=== PATIENT | female | born 1985 | race Caucasian/White ===

== ENCOUNTER 2019-06-04 09:09 | Emergency (ER) | payer SELFPAY ==
--- NOTE | 2019-06-04 09:11 | W.ED.NAVMDI ---
HPI - Nausea/Vomiting/Diarrhea General: Chief complaint: Fever Stated complaint: N/V Time Seen by Provider: 06/04/19 09:11 Source: patient Mode of arrival: ambulatory Limitations: no limitations History of Present Illness: HPI Narrative: Patient is a 33-year-old female who presents to ED today with complaints of a subjective fever starting last night, chills, body aches, productive cough, head/sinus pressure, and a few episodes of vomiting; again symptoms began yesterday; she has no abdominal pain, diarrhea, or urinary symptoms; denies sick contacts; no headache, lightheadedness, dizziness, visual changes MD elicited complaint: nausea and vomiting Associated nausea: Yes Associated abdominal pain: No Location of pain: None Associated symtoms: Reports fatigue, malaise and nausea; Denies change in vision, chest pain, dysuria, headache(s), palpitations or syncope Review of Systems Const: Reports: fever, chills, body aches, fatigue and malaise Eyes: Denies: change in vision or blurry vision ENMT: Denies: enlarged tonsils or painful swallowing Card: Denies: chest pain, palpitations, irregular heart rhythm, lightheadedness, syncope or shortness of breath on exertion Resp: Reports: productive cough and chest congestion; Denies: shortness of breath, wheezing, pain on inspiration or coughing up blood GI: Reports: nausea and vomiting; Denies: abdominal pain, vomiting blood, difficulty swallowing, heartburn/indigestion, diarrhea, painful bowel movements, change in stool character, blood in stool or white/light colored stool : Denies: flank pain, difficulty urinating, painful urination, urinary frequency, urinary urgency or urinary hesitancy Musc: Denies: neck pain, back pain or joint pain Skin/Breast: Denies: rash Neuro: Denies: headache, numbness in extremities, weakness in extremities, changes in sensation or lack of coordination PFSH ED PFSH: Statuses (acute, chronic, etc) shown below reflect problem list status as previously entered and may not be historically accurate Social History Smoking and tobacco status: current every day smoker Physical Exam Const: COMMON NORMALS: no apparent distress, oriented x3, no limitations, alert and well nourished HENMT: COMMON NORMALS: normocephalic, head/scalp atraumatic, EAC's normal and TM's normal bilaterally HEAD & SCALP: normal to inspection, normocephalic and atraumatic FACE & SINUS: sinus tenderness EXTERNAL AUDITORY CANAL: EAC's normal TYMPANIC MEMBRANE: TM's normal bilaterally MOUTH: oral and palatal mucosa normal THROAT: posterior oropharynx normal, tonsils normal and uvula midline Eye: COMMON NORMALS: PERRL and EOMs intact bilaterally PUPIL: Yes PERRL Neck/C-Spine: COMMON NORMALS: full ROM, no lymphadenopathy, supple and no meningeal signs Resp: COMMON NORMALS: normal respiratory effort and clear to auscultation bilaterally AUSCULTATION: clear to auscultation bilaterally Cardio: COMMON NORMALS: regular rate and regular rhythm RATE: regular rate RHYTHM: regular rhythm GI: COMMON NORMALS: normal to inspection, nondistended, normoactive bowel sounds, soft to palpation, non-tender, no hepatosplenomegaly and no masses PALPATION: Yes soft and Yes no hepatosplenomegaly : COMMON NORMALS: Yes no CVA tenderness BLADDER/KIDNEY EXAM: Yes no CVA tenderness Back/Pelvis: COMMON NORMALS: no CVA tenderness and thoracic and lumbar spine normal to inspection Extremity: COMMON NORMALS: normal to inspection Neuro: COMMON NORMALS: oriented x3 SENSORIUM/ORIENTATION: Yes alert MENINGEAL SIGNS: Yes no meningeal signs Skin: COMMON NORMALS: no rashes or lesions noted GENERAL SKIN EXAM: no rashes or lesions noted Course Vital Signs: Vital signs: Vital Signs Temperature 98.3 F 06/04/19 12:30 Pulse Rate 87 06/04/19 12:30 Respiratory Rate 18 06/04/19 12:30 Blood Pressure 95/55 06/04/19 12:30 Pulse Oximetry 98 06/04/19 12:30 MDM - Nausea/Vomiting/Diarrhea Lab Data: Labs: Lab Results 06/04/19 06/04/19 06/04/19 Range/Units 09:38 10:42 10:42 WBC 9.0 (4.0-10.0) 10^3/ uL RBC 4.99 (4.1-5.3) 10^6/u L Hgb 13.6 (11.5-15.3) g/dL Hct 40.5 (37.0-47.0) % MCV 81.2 (81-99) fL MCH 27.3 L (28.0-34.0) pg MCHC 33.6 (30.0-36.0) g/dL RDW 13.2 (12.1-15.1) % Plt Count 289 (130-400) 10^3/c mm MPV 9.6 (7.4-10.4) fL Neut % (Auto) 67.9 % Lymph % (Auto) 20.4 % Hooker % (Auto) 8.7 % Eos % (Auto) 2.1 % Baso % (Auto) 0.6 % Neut # (Auto) 6.1 (1.8-7.7) 10^3/u L Lymph # (Auto) 1.8 (0.8-4.8) 10^3/u L Hooker # (Auto) 0.8 (0.2-0.9) 10^3/u L Eos # (Auto) 0.2 (0.0-0.8) 10^3/u L Baso # (Auto) 0.1 (0.0-0.1) 10^3/u L Nucleated RBC % (a uto) 0 % Nucleated RBCs # 0.0 /100WBC Sodium 137 (136-145) mmol/L Potassium 3.9 (3.5-5.1) mmol/L Chloride 102 (98-107) mmol/L Carbon Dioxide 21 L (22-29) mmol/L Anion Gap 17.9 (5-19) BUN 9 (6-20) mg/dL Creatinine 0.9 (0.5-0.9) mg/dL GFR Calculation 72.6 L (90-130) mL/min Glucose 113 H (74-109) mg/dL Calcium 9.6 (8.5-10.5) mg/dL Total Bilirubin 0.4 (0.15-1.2) mg/dL AST 26 (0-32) U/L ALT 16 (0-33) U/L Alkaline Phosphata se 88 (35-105) IU/L Total Protein 7.8 (6.6-8.7) g/dL Albumin 4.3 (3.5-5.2) g/dL Globulin 3.5 (1.3-4.6) g/dL Influenza Type A A g Negative (Negative) POC Influenza B Ag Negative (Negative) 06/04/19 Range/Units 11:02 WBC (4.0-10.0) 10^3/ uL RBC (4.1-5.3) 10^6/u L Hgb (11.5-15.3) g/dL Hct (37.0-47.0) % MCV (81-99) fL MCH (28.0-34.0) pg MCHC (30.0-36.0) g/dL RDW (12.1-15.1) % Plt Count (130-400) 10^3/c mm MPV (7.4-10.4) fL Neut % (Auto) % Lymph % (Auto) % Hooker % (Auto) % Eos % (Auto) % Baso % (Auto) % Neut # (Auto) (1.8-7.7) 10^3/u L Lymph # (Auto) (0.8-4.8) 10^3/u L Hooker # (Auto) (0.2-0.9) 10^3/u L Eos # (Auto) (0.0-0.8) 10^3/u L Baso # (Auto) (0.0-0.1) 10^3/u L Nucleated RBC % (a uto) % Nucleated RBCs # /100WBC Sodium (136-145) mmol/L Potassium (3.5-5.1) mmol/L Chloride (98-107) mmol/L Carbon Dioxide (22-29) mmol/L Anion Gap (5-19) BUN (6-20) mg/dL Creatinine (0.5-0.9) mg/dL GFR Calculation (90-130) mL/min Glucose (74-109) mg/dL Calcium (8.5-10.5) mg/dL Total Bilirubin (0.15-1.2) mg/dL AST (0-32) U/L ALT (0-33) U/L Alkaline Phosphata se (35-105) IU/L Total Protein (6.6-8.7) g/dL Albumin (3.5-5.2) g/dL Globulin (1.3-4.6) g/dL Influenza Type A A g Negative (Negative) POC Influenza B Ag Negative (Negative) Imaging Data^: CXR: Radiologist's impression: [address] [address] XRay Report Signed Patient: Chela Finley Unit #: [id number] : 1985 Age/Sex: 33 / F ADM Date: 06/04/19 Loc: ER Room/Bed: Attending Dr: Ordering Provider/Ordering MD: Brandee Trinh Date of Service: 06/04/19 Procedure(s): XR chest 1V portable [id number] Accession Number(s): [id number] Report Number: [id number] WS: [id number] Portable AP upright chest, 06/04/2019 Clinical Data: cough/congestion Comparison: PA chest, 06/20/2013 Findings: No nodules, masses or effusions are seen. The heart is normal. The pulmonary vascularity is not increased. No pneumonia or pneumothorax is seen. XR/XR chest 1V portable [id number] Impression: Negative chest. Dictated By: Sepideh Campuzano MD Signed By: Sepideh Campuzano MD Signed Date/Time: 06/04/19 1142 DD/ 1141 Discharge Plan Discharge Patient Disposition: Home, Self-Care Clinical Impression: Viral infection Condition: Stable Prescriptions: New Zofran 4 mg tablet 4 mg PO Q6H PRN (Reason: nausea and vomiting) Qty: 14 RF: 0 Discharge Orders: Discharge Order (Routine); Ordered 06/04/19 Ordered By: Brandee Trinh Referrals: Kiara Parker MD [Primary Care Provider] - Discharge Diet: Usual diet Discharge Activity: Increase activity as tolerated Activity Restrictions/Additional Instructions: Return to the emergency department for worsening symptoms, uncontrollable fevers, repetitive nausea and vomiting despite nausea medications, or any other concerns she may have. Coding Level of Care Code ED Motion Picture Photographer for Gini Oreilly
[2019-06-04 09:12] VITALS: BP 155/102; PULSE 89; RESP 18; TEMP 36.5; O2SAT 97; BMI 34.3
--- NOTE | 2019-06-04 10:03 | XR_ITS ---
WS: [id number] Portable AP upright chest, 06/04/2019 Clinical Data: cough/congestion Comparison: PA chest, 06/20/2013 Findings: No nodules, masses or effusions are seen. The heart is normal. The pulmonary vascularity is not increased. No pneumonia or pneumothorax is seen. XR/XR chest 1V portable [id number] Impression: Negative chest.
[2019-06-04 10:23] LABS: Influenza A by IFA Negative (Negative); Influenza B by IFA Negative (Negative)
[2019-06-04 10:51] LABS: Basophils # 0.1 10^3/uL (0.0-0.1); Basophils % 0.6 %; Eosinophils # 0.2 10^3/uL (0.0-0.8); Eosinophils % 2.1 %; Hematocrit 40.5 % (37.0-47.0); Hemoglobin 13.6 g/dL (11.5-15.3); Lymphocytes # 1.8 10^3/uL (0.8-4.8); Lymphocytes % 20.4 %; Mean Corpuscular HGB Conc 33.6 g/dL (30.0-36.0); Mean Corpuscular Hemoglobin 27.3 pg (28.0-34.0); Mean Corpuscular Volume 81.2 fL (81-99); Mean Platelet Volume 9.6 fL (7.4-10.4); Monocytes # 0.8 10^3/uL (0.2-0.9); Monocytes % 8.7 %; Neutrophils # 6.1 10^3/uL (1.8-7.7); Neutrophils % 67.9 %; Nucleated Red Blood Cells % 0 %; Platelet Count 289 10^3/cmm (130-400); Red Blood Count 4.99 10^6/uL (4.1-5.3); Red Cell Distribution Width 13.2 % (12.1-15.1)
[2019-06-04 11:05] LABS: Alanine Aminotransferase 16 U/L (0-33); Albumin Level 4.3 g/dL (3.5-5.2); Alkaline Phosphatase 88 IU/L (35-105); Anion Gap 17.9 (5-19); Aspartate Amino Transferase 26 U/L (0-32); Blood Urea Nitrogen 9 mg/dL (6-20); Calcium 9.6 mg/dL (8.5-10.5); Carbon Dioxide 21 mmol/L (22-29); Chloride 102 mmol/L (98-107); Creatinine Clr Calc Pharmacy 97.9019; Globulin 3.5 g/dL (1.3-4.6); Glomerular Filtration Rate 72.6 mL/min (90-130); Glucose 113 mg/dL (74-109); Potassium 3.9 mmol/L (3.5-5.1); Sodium 137 mmol/L (136-145); Total Bilirubin 0.4 mg/dL (0.15-1.2); Total Protein 7.8 g/dL (6.6-8.7)
[2019-06-04 11:33] VITALS: BP 100/56; PULSE 76; RESP 16; O2SAT 98
[2019-06-04] MEDS: sodium chloride 0.9% 1,000 ML 999 ML IV (11:56)
[2019-06-04 12:01] LABS: Influenza A by IFA Negative (Negative); Influenza B by IFA Negative (Negative)
[2019-06-04 12:30] VITALS: BP 95/55; PULSE 87; RESP 18; TEMP 36.8; O2SAT 98
[2019-06-04 12:45] VITALS: BP 95/55; PULSE 86; RESP 18; TEMP 36.9; O2SAT 86
== END 2019-06-04 12:47 | disposition home or self-care (01) ==
PROVIDERS: Emergency Provider Physician Assistant; PCP Family Medicine
DX: B34.9 Viral infection, unspecified (principal); F17.210 Nicotine dependence, cigarettes, uncomplicated
CPT/HCPCS: 36415; 71045; 80053; 85025; 87804; 96360; 96374; 99282; 99284; J7030

== ENCOUNTER → 2020-02-02 15:47 | Outpatient (BNVA) | payer OTHER, SELFPAY | PROVIDERS: PCP Family Medicine; Visit Provider Nurse Practitioner Family | DX: Z20.828 Contact with and (suspected) exposure to other viral communicable diseases (principal) | CPT/HCPCS: 87635 ==

== ENCOUNTER 2020-06-21 15:39 | Emergency (ER) | payer SELFPAY ==
[2020-06-21 15:47] VITALS: BP 108/85; PULSE 92; RESP 16; TEMP 36.6; O2SAT 94; BMI 36.0
[2020-06-21] MEDS: clindamycin 150 mg Capsule 300 MG PO (16:03)
[2020-06-21] MEDS: lidocaine 2% viscous 15 mL UDC 10 ML TOPICAL (16:04)
--- NOTE | 2020-06-21 16:08 | W.ED.DENTAL ---
HPI - Dental/Oral General: Chief complaint: Dental/Oral Stated complaint: ABSCESS TOOTH Time Seen by Provider: 06/21/20 15:45 Source: patient Mode of arrival: ambulatory Limitations: no limitations History of Present Illness: HPI Narrative: Pleasant 35-year-old female patient presents to the emergency department with 1 day history of right upper dental pain. She reports has bad teeth, does not complete routine dentistry care. She denies difficulty swallowing or breathing. Location: Tooth # Teeth map: 1. Onset (ago): day(s) (1) Duration: constant Severity: moderate Relieving factors: NSAIDs Exacerbating factors: chewing and cold Context: history of dental caries and poor dental care Associated symptoms: Reports no associated symptoms; Denies fever(s) Treatment prior to arrival: oral analgesic Review of Systems General: Reports: 10 or more systems reviewed and unremarkable except in HPI and below Const: Denies: fever(s), chills or diaphoresis Eyes: Denies: blurry vision or eye redness ENMT: Reports: dental pain; Denies: throat pain, uvular edema, dry mouth, disequilibrium, nasal discharge, nasal congestion, nasal obstruction or post nasal drip Card: Denies: chest pain, palpitations or irregular heart rhythm Resp: Denies: dyspnea, productive cough, non-productive cough or wheezing GI: Denies: abdominal pain, nausea or vomiting : Denies: difficulty voiding or dysuria Musc: Denies: neck pain, back pain, joint pain, joint warmth or joint stiffness Skin/Breast: Denies: rash or pruritus Neuro: Denies: headache(s), weakness in extremities or behavioral changes Psych: Denies: anxiety, depression, sleeping more or hopelessness Nasir/Lymph: Denies: easy bruising PFSH ED PFSH: Social History Smoking and tobacco status: current every day smoker Female Reproductive History: Date of last menstrual period: 06/21/20 Physical Exam Const: COMMON NORMALS: no acute distress, patient oriented x3, healthy appearing and alert GENERAL APPEARANCE: cooperative, comfortable and well hydrated HENMT: COMMON NORMALS: normocephalic, atraumatic, EAC's normal, Normal external nose present, moist oral mucous membranes and oropharynx normal HEAD & SCALP: normal to inspection, normocephalic and atraumatic FACE & SINUS: normal facial exam and face symmetric NOSE: Normal external nose present and Normal nares present EXTERNAL AUDITORY CANAL: EAC's normal TYMPANIC MEMBRANE: TM abnormal TM laterality: left Details: dull, erythematous and loss of landmarks MOUTH: Normal oral and palatal mucosa present and tongue normal TEETH & GINGIVA: Yes poor dentition, Yes teeth discoloration and Yes other (numerous avulsions) TEETH & GINGIVA IMAGES: 1. dental pain with palpation, slight gingival erythema with edema THROAT: posterior oropharynx normal and uvula midline; no uvular edema Eye: COMMON NORMALS: Equal, round and reactive pupils present and EOMs intact bilaterally GENERAL EYE: appearance normal, both eyes and all related structures PUPIL: Yes Equal, round and reactive pupils present Neck/C-Spine: COMMON NORMALS: full ROM and no lymphadenopathy GENERAL: Yes normal visual inspection and Yes trachea midline CERVICAL SPINE: Yes cervical ROM normal Lymph: LYMPHATIC: no lymphadenopathy noted Chest: COMMONS NORMALS: normal inspection of the chest and normal palpation of entire chest wall CHEST: No localized rib tenderness with anteroposterior compression Resp: COMMON NORMALS: normal respiratory effort, No retractions, No use of accessory muscles and clear to auscultation bilaterally EFFORT & INSPECTION: Yes able to speak in complete sentences, No labored, No Actively coughing and No retractions AUSCULTATION: clear to auscultation bilaterally Cardio: COMMON NORMALS: regular rate, regular rhythm, S1 normal heart sound present, S2 normal heart sound present and Peripheral pulses 2+ throughout RATE: regular rate RHYTHM: regular rhythm HEART SOUNDS: S1 normal heart sound present and S2 normal heart sound present PERIPHERAL PULSES: Peripheral pulses 2+ throughout GI: COMMON NORMALS: Soft to palpation and non-tender INSPECTION: Yes normal to inspection, No abdominal wall ecchymosis and Yes central obesity PALPATION: Yes Soft to palpation : COMMON NORMALS: Yes no CVA tenderness BLADDER/KIDNEY EXAM: Yes no CVA tenderness Back/Pelvis: COMMON NORMALS: no CVA tenderness and thoracic and lumbar spine normal to inspection Extremity: COMMON NORMALS: normal to inspection and capillary refill normal Neuro: COMMON NORMALS: patient oriented x3, moves all extremities, no focal motor deficits and gait normal SENSORIUM/ORIENTATION: Yes alert Psych: COMMON NORMALS: mental status grossly normal, Normal thought process present and cooperative ACTIVITY/MOTOR BEHAVIOR: Yes appropriate eye contact THOUGHT PROCESS: Normal thought process present Skin: COMMON NORMALS: no rashes or lesions noted and turgor normal GENERAL SKIN EXAM: no rashes or lesions noted and turgor normal Course Vital Signs: Vital signs: Vital Signs Temperature 97.9 F 06/21/20 15:47 Pulse Rate 92 06/21/20 15:47 Respiratory Rate 16 06/21/20 15:47 Blood Pressure 108/85 06/21/20 15:47 Pulse Oximetry 94 06/21/20 15:47 Discharge Plan Discharge Patient Disposition: Home Clinical Impression: Dental caries, Dental abscess Condition: Stable Prescriptions: New clindamycin HCl 300 mg capsule 300 mg PO QID 7 Days Qty: 28 RF: 0 chlorhexidine gluconate 0.12 % mouthwash 15 ml buccal BID Qty: 118 RF: 0 Discharge Orders: Discharge ED (Routine); Ordered 06/21/20 Ordered By: Rosibel Hernandez Discharge Diet: GI Soft Discharge Activity: Resume usual activity Patient Instructions: Dental Abscess (ED), Dental Caries (ED), Toothache (ED), Opioid Safety Activity Restrictions/Additional Instructions: Take antibiotics until all gone, even if feeling better Follow-up with dentistry in 10 days, even if better, failure to do so can cause loss of teeth or worsening infection Rinse with warm salt water every several hours to help with pain Avoid chewing on the affected side Continue ibuprofen as needed for pain, may augment with Tylenol if needed Continue viscous lidocaine as provided in the ED, may apply on Q-tip and applied to the gumline and tooth to help with pain every 2 hours Return to the emergency department if you develop difficulty breathing, swelling underneath the chin or other concerning symptoms Coding Level of Care Code ED Associate Professor Of Management for Mary Anng Fwd Exam Comprehensive
[2020-06-21 16:22] VITALS: BP 108/85; PULSE 83; RESP 16; O2SAT 97
== END 2020-06-21 16:22 | disposition home or self-care (01) ==
PROVIDERS: Emergency Provider Nurse Practitioner Family
DX: K02.9 Dental caries, unspecified (principal); K04.7 Periapical abscess without sinus; F17.210 Nicotine dependence, cigarettes, uncomplicated
CPT/HCPCS: 99282

== ENCOUNTER 2021-01-01 11:53 | Emergency (ER) | payer SELFPAY ==
[2021-01-01 12:11] VITALS: BP 102/69; PULSE 77; RESP 18; TEMP 36.7; O2SAT 98; BMI 36.8
--- NOTE | 2021-01-01 12:24 | W.ED.DENTAL ---
HPI - Dental/Oral General: Chief complaint: Dental/Oral Stated complaint: Toothache/Nasal Pain Time Seen by Provider: 01/01/21 11:55 History of Present Illness: HPI Narrative: I will doPatient has swelling to upper gum times few days, is hurting, has history of infection here, not able to get into a dentist due to financial constraints Complaint: tooth pain Location: Tooth # Teeth map: 1. Onset (ago): day(s) Duration: constant Severity: moderate Relieving factors: nothing Context: history of dental caries Associated symptoms: Reports gum swelling; Denies fever(s) Treatment prior to arrival: oral analgesic Review of Systems Const: Denies: fever(s) or chills ENMT: Reports: dental pain Psych: Denies: anxiety or depression PFSH ED PFSH: Social History Smoking and tobacco status: current every day smoker Female Reproductive History: Date of last menstrual period: 06/21/20 Physical Exam Const: COMMON NORMALS: no acute distress GENERAL APPEARANCE: cooperative HENMT: TEETH & GINGIVA IMAGES: 1. Swelling redness to the gum area tooth is broke off multiple dental caries noted in mouth. Sinuses okay without pain no drainage. Psych: COMMON NORMALS: mental status grossly normal Course Vital Signs: Vital signs: Vital Signs Temperature 98.1 F 01/01/21 12:11 Pulse Rate 77 01/01/21 12:11 Respiratory Rate 18 01/01/21 12:11 Blood Pressure 102/69 01/01/21 12:11 Pulse Oximetry 98 01/01/21 12:11 Discharge Plan Discharge Patient Disposition: Home Clinical Impression: Toothache Condition: Stable Prescriptions: New clindamycin HCl 300 mg capsule 300 mg PO Q8H 7 Days Qty: 21 RF: 0 Celebrex 100 mg capsule 100 mg PO BID Qty: 20 RF: 0 No Action sulfamethoxazole-trimethoprim 800-160 mg tablet 1 tab PO Q12H 10 Days Qty: 20 RF: 0 Discharge Orders: Discharge ED (Routine); Ordered 01/01/21 Ordered By: Ruben Swain Discharge Diet: Usual diet Discharge Activity: Resume usual activity Patient Instructions: Dental Caries (ED) Activity Restrictions/Additional Instructions: Follow-up with medical provider as directed. Take medications as prescribed. Return to the ER or your medical provider if condition worsens. Please read and understand discharge instructions. If any questions ask please. Get in to a dentist as soon as you can. Coding Level of Care Code ED Transmissions Systems Operator for Gini Oreilly
== END 2021-01-01 12:37 | disposition home or self-care (01) ==
PROVIDERS: Emergency Provider Nurse Practitioner Family
DX: S02.5XXA Fracture of tooth (traumatic), initial encounter for closed fracture (principal); K02.9 Dental caries, unspecified; F17.200 Nicotine dependence, unspecified, uncomplicated; X58.XXXA Exposure to other specified factors, initial encounter
CPT/HCPCS: 99281

== ENCOUNTER 2021-03-11 09:31 | Emergency (ER) | payer SELFPAY ==
[2021-03-11 09:45] VITALS: BP 116/79; PULSE 92; RESP 18; TEMP 36.6; O2SAT 98; BMI 36.3
--- NOTE | 2021-03-11 10:23 | W.ED.SKABFB ---
HPI - Skin/Abscess/Foreign Bdy General: Chief complaint: Skin/Abscess/Foreign Body Stated complaint: ABSCESS R GROIN AREA Time Seen by Provider: 03/11/21 09:53 History of Present Illness: HPI narrative: Patient is a 35-year-old female comes to the ED with concern for abscess in right groin area. Patient says she noticed a bump there approximately 5 days ago and is continued to get bigger and more painful. Patient says she is prone to getting these types of abscesses especially in areas where she shaves. Patient endorses a history of MRSA. Associated symptoms: Deny chills, fever(s), nausea or vomiting Review of Systems Const: Denies: fever(s), chills or fatigue Eyes: Denies: change in vision or eye discomfort ENMT: Denies: throat pain, odynophagia, nasal discharge or nasal congestion Card: Denies: chest pain, palpitations, edema, swelling of feet/ankles, dyspnea on exertion or orthopnea Resp: Denies: dyspnea, productive cough or non-productive cough GI: Denies: abdominal pain, nausea, vomiting, diarrhea, constipation or hematochezia : Denies: flank pain, dysuria or hematuria Musc: Denies: neck pain, back pain or extremity swelling Skin/Breast: Reports: new lesions (superficial abscess to right groin region); Denies: rash Neuro: Denies: headache(s), numbness in extremities or weakness in extremities [facility] ED PFSH: Medical History Obesity (BMI 30-39.9) Social History Smoking and tobacco status: current every day smoker Female Reproductive History: Date of last menstrual period: 06/21/20 Physical Exam Const: COMMON NORMALS: no acute distress, patient oriented x3, healthy appearing and alert GENERAL APPEARANCE: cooperative and comfortable HENMT: COMMON NORMALS: normocephalic HEAD & SCALP: normocephalic MOUTH: Normal oral and palatal mucosa present THROAT: posterior oropharynx normal and uvula midline Neck/C-Spine: COMMON NORMALS: supple GENERAL: Yes normal visual inspection Resp: COMMON NORMALS: normal respiratory effort, No retractions, No use of accessory muscles and clear to auscultation bilaterally AUSCULTATION: clear to auscultation bilaterally Cardio: COMMON NORMALS: regular rate, regular rhythm, S1 normal heart sound present, S2 normal heart sound present, No gallops present (Cardio), No clicks present (Cardio), No murmurs present (Cardio) and Peripheral pulses 2+ throughout RATE: regular rate RHYTHM: regular rhythm HEART SOUNDS: S1 normal heart sound present and S2 normal heart sound present PERIPHERAL PULSES: Peripheral pulses 2+ throughout GI: COMMON NORMALS: Normal to inspection, nondistended, normoactive bowel sounds present, Soft to palpation, non-tender and no masses PALPATION: Yes Soft to palpation : COMMON NORMALS: Yes no CVA tenderness BLADDER/KIDNEY EXAM: Yes no CVA tenderness Back/Pelvis: COMMON NORMALS: no CVA tenderness Extremity: COMMON NORMALS: normal to inspection Neuro: COMMON NORMALS: patient oriented x3 and moves all extremities SENSORIUM/ORIENTATION: Yes alert Skin: NARRATIVE SKIN EXAM: right groin?not involving genital area. She has a superficial palpable abscess with some surrounding erythema warmth. It is fluctuant and indurated Procedures Abscess I/D Site: other (right groin region) Side (if applicable): right Sedation/analgesia: other (pt was given a 1 tab of norco 5/325mg before procedure) Local Anesthetic: lidocaine 1% and with epi Amount of anesthesia used (mL): 5 Technique: incised with #11 blade Amount of fluid expressed (mL): 6 (Malodorous purulent drainage) Irrigation: Yes Packing used?: none Course Vital Signs: Vital signs: Vital Signs Temperature 97.9 F 03/11/21 09:45 Pulse Rate 81 03/11/21 10:42 Respiratory Rate 16 03/11/21 10:42 Blood Pressure 125/67 03/11/21 10:42 Pulse Oximetry 99 03/11/21 10:42 MDM - Skin/Abscess/Foreign Bdy MDM Narrative: Medical decision making narrative: Patient is a 35-year-old female who comes to the ED with lesion to the right groin. Upon exam patient appears to have superficial abscess of the right groin region and it does not involve genitalia. Appears to be a superficial skin abscess. Patient says she gets these quite a bit and has had to get them incised and drained in the past. Patient was given a dose of Tylenol for pain while here in the ED. I then used lidocaine 1% with epi as local and used an 11 blade to incise abscess. Approximately 6 mL of malodorous purulent fluid drained from abscess. Abscess culture was obtained and is pending at lab. I Then irrigated it with normal saline. Patient was discharged home with a prescription for clindamycin and told to follow-up with PCP as directed. Patient says she does not have a PCP and would like to get established with one. I placed order with case management for patient to be established with a primary care physician. Return ED precautions given. Patient understood and agreed with plan. Discharge Plan Discharge Patient Disposition: Home Clinical Impression: Skin abscess Qualifiers: Site of cutaneous abscess: trunk Site of cutaneous abscess of trunk: groin Qualified Code(s): L02.214 - Cutaneous abscess of groin Condition: Stable Prescriptions: New clindamycin HCl 150 mg capsule 300 mg PO QID 7 Days Qty: 56 RF: 0 No Action Celebrex 100 mg capsule 100 mg PO BID Qty: 20 RF: 0 Discharge Orders: Discharge ED (Routine); Ordered 03/11/21 Ordered By: Juan Goznales Discharge Diet: Regular Discharge Activity: Resume usual activity Patient Instructions: Abscess (ED), Abscess Follow-up (ED), Abscess Incision and Drainage (DC) Activity Restrictions/Additional Instructions: Follow-up with medical provider as directed. Case management should be calling you next several days to set up an appointment for you to get established with a PCP. Take medications as prescribed. Return to the ER or your medical provider if condition worsens. Please read and understand discharge instructions. Thank you for choosing [facility] for your healthcare needs today. Please realize this is an emergency room and that we are providing you with a medical screening exam and this may not be complete and all inclusive of all the testing and or work up that you may need to determine your ailment or severity of your illness. It is very important that you follow up as instructed or that you return to the Emergency Department should you have concerns or if your condition changes or worsens in any way. Coding Level of Care Code ED Ceramic Sprayer for Gini Oreilly Exam Comprehensive
[2021-03-11 10:42] VITALS: BP 125/67; PULSE 81; RESP 16; O2SAT 99
--- NOTE | 2021-03-11 10:54 | PC.NURSE ---
Addendum entered by Nu Car RN 03/11/21 11:24: Pt reports a hx of these types of boils for many years, pt reports she is usually able to warm pack the area and the boil goes way but this time it has just gooten worse with the swelling and pain. Pt rates [pain 11/11. Pt A/O, vss, pt placed on monitor. Original Note: Pt arrived via POV from home, pt states she has a boil in her right groin area
[2021-03-11] MEDS: acetaminophen 500 mg Tablet 1000 MG PO (11:04)
--- NOTE | 2021-03-14 11:34 | DCPLANNER ---
caravan park and camping ground manager had message to speak with patient about getting established with a primary care physician. caravan park and camping ground manager spoke with patient, she stated that she would like for child welfare caseworker to schedule a follow up appointment for patient with Dr. Castaneda. caravan park and camping ground manager called [facility], spoke with Deja, gave clinic patients information. A follow up appointment was scheduled for Sunday, March 21, 2021 at 1:[address] Castaneda. caravan park and camping ground manager called patient and gave patient the appointment information.
--- NOTE | 2021-05-27 15:52 | DCPLANNER ---
Patient had a follow up appointment scheduled with [facility] - patient did not attend appointment.
== END 2021-03-11 12:44 | disposition home or self-care (01) ==
PROVIDERS: Emergency Provider Physician Assistant
DX: L02.214 Cutaneous abscess of groin (principal); F17.210 Nicotine dependence, cigarettes, uncomplicated
CPT/HCPCS: 10060; 87070; 87075; 87077; 87186; 87205; 99283; 99291

== ENCOUNTER 2022-05-30 08:14 | Emergency (ER) | payer SELFPAY ==
[2022-05-30 08:18] VITALS: BP 131/102; PULSE 96; RESP 20; TEMP 36.6; O2SAT 97
[2022-05-30 08:21] VITALS: BP 118/73; PULSE 84; O2SAT 99
--- NOTE | 2022-05-30 08:23 | W.ED.NAVMDI ---
HPI - Nausea/Vomiting/Diarrhea General: Chief complaint: Nausea/Vomiting/Diarrhea Stated complaint: n/v/d Time Seen by Provider: 05/30/22 08:15 Source: patient Mode of arrival: ambulatory Limitations: no limitations History of Present Illness: Patient is a 36-year-old female who presents to ED today with a complaint of nausea, vomiting, diarrhea that all began around 1 AM this morning. Patient states she has had countless episodes of vomiting and diarrhea. She states diarrhea is watery. She has not noticed any blood to her emesis or stools. She states she ate pork chops for dinner. The rest of her family also ate the same food and none of them are sick. Patient is reporting abdominal cramping and body aches. No fevers. No urinary symptoms. No previous episodes/history of cyclic vomiting. She does report using marijuana 2-3x a week. MD elicited complaint: nausea, vomiting and diarrhea Onset (ago): hour(s) Description of diarrhea: watery Associated nausea: Yes Associated abdominal pain: Yes (cramping) Location of pain: Diffuse Radiation: diffuse Pain consistency: constant Quality: cramping Exacerbating factors: eating (drinking) Associated symtoms: Reports nausea; Denies chest pain, dysuria, fatigue, headache(s) or malaise Review of Systems Const: Reports: body aches; Denies: fever(s), chills, fatigue or malaise Card: Denies: chest pain Resp: Denies: dyspnea GI: Reports: abdominal pain (cramping), nausea, vomiting, diarrhea and GI cramping; Denies: hematemesis, hematochezia, melena, mucus in stool or white/light colored stool : Denies: flank pain, dysuria or hematuria Musc: Denies: neck pain, back pain, extremity pain or joint pain Skin/Breast: Denies: rash Neuro: Denies: headache(s), numbness in extremities, weakness in extremities or sensory changes PFSH ED PFSH: Medical History Obesity (BMI 30-39.9) Social History Smoking and tobacco status: current every day smoker Female Reproductive History: Date of last menstrual period: 06/21/20 Physical Exam Const: COMMON NORMALS: patient oriented x3, no limitations and alert GENERAL APPEARANCE: cooperative and anxious (tearful) NUTRITIONAL APPEARANCE: overweight ORIENTATION/CONSCIOUSNESS: Yes awake, Yes oriented to person, Yes oriented to place and Yes oriented to time HENMT: COMMON NORMALS: normocephalic and atraumatic HEAD & SCALP: normal to inspection, normocephalic and atraumatic Resp: COMMON NORMALS: normal respiratory effort and clear to auscultation bilaterally AUSCULTATION: clear to auscultation bilaterally Cardio: COMMON NORMALS: regular rate and regular rhythm RATE: regular rate RHYTHM: regular rhythm GI: COMMON NORMALS: Normal to inspection, nondistended, normoactive bowel sounds present, Soft to palpation, non-tender, No hepatosplenomegaly present and no masses INSPECTION: Yes normal to inspection AUSCULTATION: Yes normoactive bowel sounds PALPATION: Yes Soft to palpation, No Tenderness to palpation present (GI), No Guarding due to palpation present (GI), No Rigid due to palpation and Yes No hepatosplenomegaly present OTHER: palpation of abdomen is non-tender but makes patient uncomfortable stating she feels like she's going to vomit/defecate : COMMON NORMALS: Yes no CVA tenderness BLADDER/KIDNEY EXAM: Yes no CVA tenderness Back/Pelvis: COMMON NORMALS: no CVA tenderness Extremity: COMMON NORMALS: normal to inspection GENERAL: Yes normal exam except as noted Neuro: [place] COMA SCALE: document GCS findings [place] coma scale eye opening: Spontaneous [place] coma scale verbal response: Orientated [place] coma scale motor response: Obey commands [place] coma scale total score: 15 COMMON NORMALS: patient oriented x3, moves all extremities, no focal motor deficits, no sensory deficits noted and gait normal SENSORIUM/ORIENTATION: Yes alert, Yes oriented to person, Yes oriented to place and Yes oriented to time Skin: COMMON NORMALS: no rashes or lesions noted GENERAL SKIN EXAM: no rashes or lesions noted Course Vital Signs: Vital signs: Vital Signs Temperature 97.8 F 05/30/22 08:18 Pulse Rate 92 05/30/22 09:51 Respiratory Rate 20 H 05/30/22 08:18 Blood Pressure 120/79 05/30/22 09:51 Pulse Oximetry 100 05/30/22 09:51 Oxygen Delivery Me thod 05/30/22 09:51 MDM - Nausea/Vomiting/Diarrhea Medical Decision Making Patient states nausea has improved. She has not had any episodes of diarrhea or vomiting while here. Abdominal re-examination reveals no tenderness, guarding, or rigidity. I do not have any concerns at this time for acute intra-abdominal pathology. Symptoms most likely secondary to gastroenteritis. Strict return to ED precautions given which patient voiced understanding of. Lab Data 05/30/22 08:30 05/30/22 08:30 Laboratory Results WBC 15.5 10^3/uL (4.0-10.0) H 05/30/22 08:30 RBC 5.25 10^6/uL (4.1-5.3) 05/30/22 08:30 Hgb 14.7 g/dL (11.5-15.3) 05/30/22 08:30 Hct 44.7 % (37.0-47.0) 05/30/22 08:30 MCV 85.1 fl (81-99) 05/30/22 08:30 MCH 28.0 pg (28.0-34.0) 05/30/22 08:30 MCHC 32.9 g/dL (30.0-36.0) 05/30/22 08:30 RDW 13.1 % (12.1-15.1) 05/30/22 08:30 Plt Count 287 10^3/cmm (130-400) 05/30/22 08:30 MPV 9.5 fL (7.4-10.4) 05/30/22 08:30 Neut % (Auto) 84.6 % 05/30/22 08:30 Lymph % (Auto) 6.2 % 05/30/22 08:30 [place] % (Auto) 7.4 % 05/30/22 08:30 Eos % (Auto) 1.0 % 05/30/22 08:30 Baso % (Auto) 0.3 % 05/30/22 08:30 Neut # (Auto) 13.14 10^3/uL (1.8-7.7) H 05/30/22 08:30 Lymph # (Auto) 1.0 10^3/uL (0.8-4.8) 05/30/22 08:30 [place] # (Auto) 1.2 10^3/uL (0.2-0.9) H 05/30/22 08:30 Eos # (Auto) 0.2 10^3/uL (0.0-0.8) 05/30/22 08:30 Baso # (Auto) 0.1 10^3/uL (0.0-0.1) 05/30/22 08:30 Nucleated RBC % (auto) 0 % 05/30/22 08:30 Nucleated RBCs # 0.0 /100WBC 05/30/22 08:30 Sodium 138 mmol/L (136-145) 05/30/22 08:30 Potassium 4.2 mmol/L (3.5-5.1) 05/30/22 08:30 Chloride 104 mmol/L (98-107) 05/30/22 08:30 Carbon Dioxide 21 mmol/L (22-29) L 05/30/22 08:30 Anion Gap 17.2 (5-19) 05/30/22 08:30 BUN 8 mg/dL (6-20) 05/30/22 08:30 Creatinine 0.7 mg/dL (0.5-0.9) 05/30/22 08:30 GFR Calculation 95.2 mL/min (90-130) 05/30/22 08:30 Glucose 115 mg/dL (65-115) 05/30/22 08:30 Calculated Osmolality 285 mOsm/kg (285-295) 05/30/22 08:30 Calcium 8.7 mg/dL (8.5-10.5) 05/30/22 08:30 Total Bilirubin 0.3 mg/dL (0.15-1.2) 05/30/22 08:30 AST 14 U/L (0-32) 05/30/22 08:30 ALT 17 U/L (0-33) 05/30/22 08:30 Alkaline Phosphatase 81 U/L (35-105) 05/30/22 08:30 Total Protein 7.3 g/dL (6.6-8.7) 05/30/22 08:30 Albumin 4.2 g/dL (3.5-5.2) 05/30/22 08:30 Globulin 3.1 g/dL (1.3-4.6) 05/30/22 08:30 Lipase 32 U/L (13-60) 05/30/22 08:30 HCG, Qual Negative (Negative) 05/30/22 08:30 Urine Color Yellow (Yellow) 05/30/22 09:26 Urine Appearance Hazy (CLEAR) A 05/30/22 09:26 Urine pH 7 (5-7) 05/30/22 09:26 Ur Specific [place] 1.010 (1.005-1.030) 05/30/22 09:26 Urine Protein Neg (Negative) 05/30/22 09:26 Urine Glucose (UA) Norm (Normal) 05/30/22 09:26 Urine Ketones Negative (Negative) 05/30/22 09:26 Urine Blood Neg (Negative) 05/30/22 09:26 Urine Nitrate Negative (Negative) 05/30/22 09:26 Urine Bilirubin Neg (Negative) 05/30/22 09:26 Urine Urobilinogen Norm mg/dL (Negative) 05/30/22 09:26 Ur Leukocyte Esterase Negative (Negative) 05/30/22 09:26 Urine RBC None /hpf (0-2) 05/30/22 09:26 Urine WBC None /hpf (0-5) 05/30/22 09:26 Ur Squamous Epith Cells Rare /hpf (0-5) 05/30/22 09:26 Amorphous Sediment Not Reportable 05/30/22 09:26 Urine Bacteria 1+ /hpf (NONE) H 05/30/22 09:26 Discharge Plan Discharge Patient Disposition: Home Clinical Impression: Gastroenteritis Condition: Stable Prescriptions: New metoclopramide HCl 10 mg tablet 10 mg PO Q6H PRN (Reason: nausea and vomiting) Qty: 10 0RF No Action clindamycin HCl 150 mg capsule 150 mg PO QID Discharge Orders: Discharge ED (Routine); Ordered 05/30/22 Ordered By: Brandee Trinh Patient Instructions: Gastroenteritis (DC) Coding Level of Care Code ED Relief Operator for Chg Fwd Exam Comprehensive
[2022-05-30 08:37] LABS: Basophils # 0.1 10^3/uL (0.0-0.1); Basophils % 0.3 %; Eosinophils # 0.2 10^3/uL (0.0-0.8); Hematocrit 44.7 % (37.0-47.0); Hemoglobin 14.7 g/dL (11.5-15.3); Lymphocytes % 6.2 %; Mean Corpuscular HGB Conc 32.9 g/dL (30.0-36.0); Mean Corpuscular Volume 85.1 fl (81-99); Mean Platelet Volume 9.5 fL (7.4-10.4); Monocytes # 1.2 10^3/uL (0.2-0.9); Monocytes % 7.4 %; Neutrophils # 13.14 10^3/uL (1.8-7.7); Neutrophils % 84.6 %; Nucleated Red Blood Cells % 0 %; Platelet Count 287 10^3/cmm (130-400); Red Blood Count 5.25 10^6/uL (4.1-5.3); Red Cell Distribution Width 13.1 % (12.1-15.1); White Blood Count 15.5 10^3/uL (4.0-10.0)
[2022-05-30] MEDS: ondansetron 2 mg/ML SDV 2 mL 4 MG IVP (08:37)
[2022-05-30] MEDS: sodium chloride 0.9% 1,000 ML 999 ML IV (08:37)
[2022-05-30 08:52] LABS: Alanine Aminotransferase 17 U/L (0-33); Albumin Level 4.2 g/dL (3.5-5.2); Alkaline Phosphatase 81 U/L (35-105); Anion Gap 17.2 (5-19); Aspartate Amino Transferase 14 U/L (0-32); Blood Urea Nitrogen 8 mg/dL (6-20); Calcium 8.7 mg/dL (8.5-10.5); Carbon Dioxide 21 mmol/L (22-29); Chloride 104 mmol/L (98-107); Globulin 3.1 g/dL (1.3-4.6); Glomerular Filtration Rate 95.2 mL/min (90-130); Glucose 115 mg/dL (65-115); Lipase 32 U/L (13-60); Osmolality Calculated 285 mOsm/kg (285-295); Potassium 4.2 mmol/L (3.5-5.1); Sodium 138 mmol/L (136-145); Total Bilirubin 0.3 mg/dL (0.15-1.2); Total Protein 7.3 g/dL (6.6-8.7)
[2022-05-30 09:01] LABS: HCG, Serum Qual Negative (Negative)
[2022-05-30] MEDS: metoclopramide 5 mg/mL SDV 2 mL 10 MG IVP (09:49)
[2022-05-30] MEDS: LORazepam 2 mg/mL INJ 1 mL 1 MG IVP (09:49)
[2022-05-30 09:51] VITALS: BP 120/79; PULSE 92; O2SAT 100
[2022-05-30] MEDS: promethazine 25 mg/mL SDV 1 mL IM (10:27)
[2022-05-30 10:33] LABS: Add Urine Microscopic? YES; Bilirubin Urine Neg (Negative); Blood Urine Neg (Negative); Glucose Urine UA Norm (Normal); Ketones Urine Negative (Negative); Leukocyte Esterase Urine Negative (Negative); Nitrate Urine Negative (Negative); Protein Urine Neg (Negative); Urine Appearance Hazy (CLEAR); Urine Color Yellow (Yellow); Urobilinogen Urine Norm (Negative); pH Urine 7 (5-7)
[2022-05-30 10:35] LABS: Bacteria Urine 1+ /hpf; Squamous Epithelial Cell Urine RARE /hpf (0-5)
== END 2022-05-30 10:32 | disposition home or self-care (01) ==
PROVIDERS: Emergency Provider Physician Assistant
DX: K52.9 Noninfective gastroenteritis and colitis, unspecified (principal); F17.210 Nicotine dependence, cigarettes, uncomplicated
CPT/HCPCS: 80053; 81001; 83690; 84703; 85025; 96361; 96372; 96374; 96375; 99284; J2060; J2405; J2550; J2765; J7030

== ENCOUNTER 2023-02-04 16:35 | Emergency (ER) | payer SELFPAY ==
[2023-02-04 16:50] VITALS: PULSE 104; RESP 17; TEMP 36.6; O2SAT 100; BMI 40.7
[2023-02-04 18:00] LABS: Add Urine Microscopic? NO; Charge for UA Resulting for Rev
[2023-02-04 18:04] LABS: Bilirubin Urine Neg (Negative); Blood Urine Neg (Negative); Glucose Urine UA Norm (Normal); Ketones Urine Negative (Negative); Leukocyte Esterase Urine Negative (Negative); Nitrate Urine Negative (Negative); Protein Urine Neg (Negative); Urine Appearance Clear (CLEAR); Urine Color Yellow (Yellow); Urobilinogen Urine Norm (Negative); pH Urine 5 (5-7)
[2023-02-04 18:05] LABS: HCG Qualitative Urine. Negative (Negative)
--- NOTE | 2023-02-04 19:00 | XRR_ITS ---
PROCEDURE INFORMATION: Exam: XR Lumbosacral Spine Exam date and time: 02/04/2023 7:20 PM Age: 37 years old Clinical indication: Low back pain; Prior surgery; Surgery date: 6+ months; Surgery type: Tubal TECHNIQUE: Imaging protocol: Radiologic exam of the lumbosacral spine. Views: 2 or 3 views. COMPARISON: CT kidney stone [id number] 01/26/2017 2:26 PM FINDINGS: Bones/joints: No acute fracture. Normal alignment. Moderate intervertebral disc space narrowing with associated osteophyte formation at L4-L5 and L5-S1. Soft tissues: Unremarkable. XR/XR lumbar spine 2-3V* [id number] IMPRESSION: 1. No acute findings. 2. Moderate lower lumbar spine degenerative changes.
--- NOTE | 2023-02-04 19:01 | W.ED.FEMALGU ---
HPI - Female Genitourinary General: Chief complaint: Urogenital-Female Stated complaint: low back pain Time Seen by Provider: 02/04/23 16:45 History of Present Illness: 37-year-old female presents emerged department complaints of low back pain and difficulty urinating for the previous 1 week. She states she feels like this is a urinary tract infection as she has had urinary tract infections in the past. She states her low back pain is a 4 out of 10 and aching. She states nothing seems to make it better nothing seems to make it worse. She is concerned that she had a urinary tract infection and has moved to her lower back. She does states she has had increased urinary frequency and intermittent dysuria. She denies fevers chills or night sweats or hematuria. Associated symptoms: Reports abdominal pain Review of Systems General: Reports: 10 or more systems reviewed and unremarkable except in HPI and below GI: Reports: abdominal pain Musc: Reports: back pain PFS ED PFSH: Medical History Obesity (BMI 30-39.9) Social History Smoking and tobacco status: current every day smoker Physical Exam Const: COMMON NORMALS: no acute distress, average body habitus and patient oriented x3 HENMT: COMMON NORMALS: normocephalic, atraumatic and moist oral mucous membranes HEAD & SCALP: normocephalic and atraumatic Eye: COMMON NORMALS: Equal, round and reactive pupils present and EOMs intact bilaterally PUPIL: Yes Equal, round and reactive pupils present Neck/C-Spine: COMMON NORMALS: full ROM and supple Chest: COMMONS NORMALS: normal inspection of the chest and normal palpation of entire chest wall Resp: COMMON NORMALS: normal respiratory effort and clear to auscultation bilaterally AUSCULTATION: clear to auscultation bilaterally Cardio: COMMON NORMALS: regular rate, regular rhythm, S1 normal heart sound present and S2 normal heart sound present RATE: regular rate RHYTHM: regular rhythm HEART SOUNDS: S1 normal heart sound present and S2 normal heart sound present GI: COMMON NORMALS: Normal to inspection, nondistended, normoactive bowel sounds present, Soft to palpation and non-tender PALPATION: Yes Soft to palpation Back/Pelvis: COMMON NORMALS: thoracic and lumbar spine normal to inspection, no thoracic nor lumbar tenderness and thoraco-lumbar ROM normal Extremity: COMMON NORMALS: normal to inspection, full ROM and capillary refill normal Neuro: COMMON NORMALS: patient oriented x3, moves all extremities and no sensory deficits noted Psych: COMMON NORMALS: mental status grossly normal, Normal thought process present and cooperative THOUGHT PROCESS: Normal thought process present Skin: COMMON NORMALS: no rashes or lesions noted GENERAL SKIN EXAM: no rashes or lesions noted Course Vital Signs: Vital signs: Vital Signs Temperature 97.9 F 02/04/23 16:50 Pulse Rate 104 H 02/04/23 16:50 Respiratory Rate 17 02/04/23 16:50 Pulse Oximetry 100 02/04/23 16:50 Oxygen Delivery Me thod Room Air 02/04/23 16:50 MDM - Female Medical Decision Making Physical exam completed and documented, urinalysis sent and evaluated no acute findings noted. I suspect most likely this is musculoskeletal strain. Differential Diagnosis Likely gastroenteritis Medical Records I reviewed the patient's medical records. Lab Data I reviewed the patient's lab results. Radiology Impressions Lumbar Spine X-Ray 02/04/23 19:00 IMPRESSION: 1. No acute findings. 2. Moderate lower lumbar spine degenerative changes. Laboratory Results HCG, Qual Negative (Negative) 02/04/23 17:50 Urine Color Yellow (Yellow) 02/04/23 17:50 Urine Appearance Clear (CLEAR) 02/04/23 17:50 Urine pH 5 (5-7) 02/04/23 17:50 Ur Specific [place] 1.020 (1.005-1.030) 02/04/23 17:50 Urine Protein Neg (Negative) 02/04/23 17:50 Urine Glucose (UA) Norm (Normal) 02/04/23 17:50 Urine Ketones Negative (Negative) 02/04/23 17:50 Urine Blood Neg (Negative) 02/04/23 17:50 Urine Nitrate Negative (Negative) 02/04/23 17:50 Urine Bilirubin Neg (Negative) 02/04/23 17:50 Urine Urobilinogen Norm mg/dL (Negative) 02/04/23 17:50 Ur Leukocyte Esterase Negative (Negative) 02/04/23 17:50 All radiology interpretation(s) finalized by discharge ED provider radiology interpretation(s): no acute findings at present Discharge Plan Discharge Patient Disposition: Home Clinical Impression: Low back pain, Enteritis Condition: Stable Prescriptions: No Action levofloxacin 750 mg tablet 750 mg PO DAILY 7 Days Qty: 7 0RF prednisone 20 mg tablet 60 mg PO DAILY 5 Days Qty: 15 0RF Discharge Orders: Discharge ED (Routine); Ordered 02/04/23 Ordered By: Victorino Wise Discharge Diet: Advance as tolerated Discharge Activity: Resume usual activity Patient Instructions: Opioid Safety, Pain Management Coding Level of Care Code ED Machine Tool Technician Instructor for Gini Oreilly
== END 2023-02-04 20:07 | disposition home or self-care (01) ==
PROVIDERS: Emergency Provider Internal Medicine
DX: M54.50 Low back pain, unspecified (principal); K52.9 Noninfective gastroenteritis and colitis, unspecified; F17.210 Nicotine dependence, cigarettes, uncomplicated
CPT/HCPCS: 72100; 81003; 81025; 99284

== ENCOUNTER 2023-08-07 07:41 | Emergency (ER) | payer OTHER, SELFPAY ==
[2023-08-07 07:45] VITALS: BP 111/86; PULSE 92; RESP 16; TEMP 36.3; O2SAT 98; BMI 37.8
--- NOTE | 2023-08-07 07:49 | ECG_ITS ---
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 Measurements Intervals [place] Rate: 88 P: 143 FL: 162 QRS: 114 QRSD: 79 T: 103 QT: 347 QTc: 421 Interpretive Statements SINUS RHYTHM Possible left atrial enlargement . ARM LEADS REVERSED [INVERTED P AND QRS IN I] No previous ECG available for comparison Electronically Signed On 08-07-2023 14:01:49 CDT by Charis Willingham M.D. [id number] f
--- NOTE | 2023-08-07 07:55 | PC.PHAR ---
pt states she takes no prescription medications no meds pull up on ext med history-pt states only been taking ibuprofen prn
--- NOTE | 2023-08-07 07:58 | ECG_ITS ---
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 Measurements Intervals [place] Rate: 88 P: 143 NE: 162 QRS: 114 QRSD: 79 T: 103 QT: 347 QTc: 421 Interpretive Statements SINUS RHYTHM ARM LEADS REVERSED [INVERTED P AND QRS IN I] Possible left atrial enlargement No previous ECG available for comparison Electronically Signed On 08-07-2023 14:02:08 CDT by Charis Willingham M.D. [email or web address] system [email or web address] memorial hospitalLife [email or web address]/[id number] f
[2023-08-07 08:15] LABS: Basophils # 0.1 10^3/uL (0.0-0.1); Basophils % 0.8 %; Eosinophils # 0.3 10^3/uL (0.0-0.8); Eosinophils % 3.6 %; Hematocrit 40.3 % (36-47); Lymphocytes # 2.3 10^3/uL (0.8-4.8); Lymphocytes % 31.1 %; Mean Corpuscular HGB Conc 33.3 g/dL (30-55); Mean Corpuscular Hemoglobin 28.1 pg (27-33); Mean Corpuscular Volume 84.5 fl (85-98); Mean Platelet Volume 9.5 fL (7.4-10.4); Monocytes # 0.6 10^3/uL (0.2-0.9); Monocytes % 8.9 %; Neutrophils # 4.01 10^3/uL (1.8-7.7); Neutrophils % 55.5 %; Nucleated Red Blood Cells % 0 %; Platelet Count 261 10^3/cmm (157-399); Red Blood Count 4.77 10^6/uL (3.85-5.65); Red Cell Distribution Width 13.4 % (12.1-15.1); White Blood Count 7.23 10^3/uL (3.29-11.43)
--- NOTE | 2023-08-07 08:23 | ED_ITS ---
HPI - Weakness 2 General: Chief complaint: Weakness Stated complaint: numbness and burning in legs, lightheaded Time Seen by Provider: 08/07/23 07:49 Source: patient Mode of arrival: ambulatory History of Present Illness: 38-year-old female presents emergency co mplaining of bilateral leg numbness and tingling. Additionally at times she will intermittently have numbness in her right hand. No history of any trauma. It is worsened when she stands for period of time. No history of any previous back surgeries or evaluations. No saddle paresthesias no fecal incontinence or urinary retention. She had previously had surgery on her right fifth finger but no other problems with her hand or wrist previously. No neck pain she does have some low back discomfort associated with the discomfort radiating into her upper thighs. This has been going on for 1 to 2 months. MD Complaint: focal weakness Associated symptoms: Denies chest pain, chills, dysuria or fever(s) Review of Systems 2 Const: Denies: fever(s) or chills Card: Denies: chest pain Resp: Denies: dyspnea GI: Denies: abdominal pain : Denies: dysuria, urinary frequency or urinary urgency Musc: Denies: neck pain or back pain Skin/Breast: Denies: rash PFSH ED 2 PFSH: Medical History Obesity (BMI 30-39.9) Social History Smoking and tobacco/nicotine status: current every day tobacco/nicotine user Physical Exam 2 Const: COMMON NORMALS: no acute distress GENERAL APPEARANCE: cooperative and comfortable ORIENTATION/CONSCIOUSNESS: Yes awake, Yes oriented to person, Yes oriented to place and Yes oriented to time HENMT: COMMON NORMALS: normocephalic, atraumatic and hearing grossly normal bilaterally HEAD & SCALP: normocephalic and atraumatic Neck/C-Spine: COMMON NORMALS: full ROM and no lymphadenopathy Extremity: COMMON NORMALS: normal to inspection, capillary refill normal, no clubbing, cyanosis or edema, no calf tenderness and no pedal edema OTHER: Deep tendon reflexes +2/4 patellar tendons bilaterally straight leg raising does not elicit any radicular symptoms. Dorsal and plantarflexion strength is 5 out of 5 neurovascularly intact in the lower extremities bilaterally. Examination of the upper extremities neurovascularly intact bilaterally sensation normal in the ulnar and medial nerve distributions of both right and left Tinel's and Phalen's are negative. Normal cervical range of motion. Neuro: SENSORIUM/ORIENTATION: Yes oriented to person, Yes oriented to place and Yes oriented to time Skin: COMMON NORMALS: no rashes or lesions noted GENERAL SKIN EXAM: no rashes or lesions noted Course 2 Vital Signs: Vital signs: Vital Signs Temperature 97.4 F L 08/07/23 07:45 Pulse Rate 92 08/07/23 07:45 Respiratory Rate 16 08/07/23 07:45 Blood Pressure 111/86 08/07/23 07:45 Pulse Oximetry 98 08/07/23 07:45 Oxygen Delivery Me thod Room Air 08/07/23 07:45 MDM - Weakness Medical Decision Making No red flag history or symptoms or physical exam findings. Will treat with steroid and anti-inflammatories and discharge patient home to follow-up with orthopedic clinic advanced imaging is indicated. Medical Records I reviewed the patient's medical records. Lab Data I reviewed the patient's lab results. 08/07/23 08:05 08/07/23 08:05 Laboratory Results WBC 7.23 10^3/uL (3.29-11.43) 08/07/23 08:05 RBC 4.77 10^6/uL (3.85-5.65) 08/07/23 08:05 Hgb 13.40 g/dL (11.27-16.99) 08/07/23 08:05 Hct 40.3 % (36-47) 08/07/23 08:05 MCV 84.5 fl (85-98) L 08/07/23 08:05 MCH 28.1 pg (27-33) 08/07/23 08:05 MCHC 33.3 g/dL (30-55) 08/07/23 08:05 RDW 13.4 % (12.1-15.1) 08/07/23 08:05 Plt Count 261 10^3/cmm (157-399) 08/07/23 08:05 MPV 9.5 fL (7.4-10.4) 08/07/23 08:05 Neut % (Auto) 55.5 % 08/07/23 08:05 Lymph % (Auto) 31.1 % 08/07/23 08:05 [place] % (Auto) 8.9 % 08/07/23 08:05 Eos % (Auto) 3.6 % 08/07/23 08:05 Baso % (Auto) 0.8 % 08/07/23 08:05 Neut # (Auto) 4.01 10^3/uL (1.8-7.7) 08/07/23 08:05 Lymph # (Auto) 2.3 10^3/uL (0.8-4.8) 08/07/23 08:05 [place] # (Auto) 0.6 10^3/uL (0.2-0.9) 08/07/23 08:05 Eos # (Auto) 0.3 10^3/uL (0.0-0.8) 08/07/23 08:05 Baso # (Auto) 0.1 10^3/uL (0.0-0.1) 08/07/23 08:05 Nucleated RBC % (auto) 0 % 08/07/23 08:05 Nucleated RBCs # 0.0 /100WBC 08/07/23 08:05 No radiology studies performed this visit Discharge Plan Discharge Patient Disposition: Home Clinical Impression: Lumbar radiculopathy, Numbness and tingling of right arm Condition: Stable Prescriptions: New prednisone 20 mg tablet 20 mg PO TID Qty: 15 0RF Rx Instructions: 1 p.o. 3 times daily x3 days, 1 p.o. twice daily x2 days, 1 p.o. daily x2 days diclofenac sodium 75 mg tablet,delayed release (DR/EC) 75 mg PO Q12H PRN (Reason: pain) Qty: 20 0RF Discontinued ibuprofen 200 mg Tablet 800 mg PO Q6H PRN (Reason: Pain) Discharge Orders: Discharge ED (Routine); Ordered 08/07/23 Ordered By: Yousif Yun Discharge Diet: Usual diet Discharge Activity: Increase activity as tolerated Patient Instructions: Opioid Safety, Pain Management Activity Restrictions/Additional Instructions: Thank you for choosing [facility] for your healthcare needs today. Please realize this is an emergency room and that we are providing you with a medical screening exam and this may not be complete and all inclusive of all the testing and or work up that you may need to determine your ailment or severity of your illness. It is very important that you follow up as instructed or that you return to the Emergency Department should you have concerns or if your condition changes or worsens in any way. You are seen today for pain in your back and lower legs. Suspect you may have a nerve root irritation in the low back. He also had complained of right arm numbness at times. Your exam did not show any acute findings at this time there were no red flag symptoms in your history. You were given anti-inflammatories and steroids to use for the discomfort. Case management make arrangements for you to follow-up with the orthopedic clinic for further evaluation including possible advanced imaging if felt appropriate. Coding Level of Care Code ED Principal System Software Engineer for Gini Oreilly
[2023-08-07 08:38] VITALS: BP 125/78; BP 134/81; BP 146/89; PULSE 75; PULSE 82; PULSE 91
[2023-08-07 08:41] LABS: Alanine Aminotransferase 11 U/L (0-33); Albumin Level 3.9 g/dL (3.5-5.2); Alkaline Phosphatase 94 U/L (35-105); Anion Gap 17.1 (5-19); Aspartate Amino Transferase 12 U/L (0-32); Blood Urea Nitrogen 9 mg/dL (6-20); Calcium 8.8 mg/dL (8.5-10.5); Carbon Dioxide 22 mmol/L (22-29); Chloride 104 mmol/L (98-107); Creatinine Clr Calc Pharmacy 126.3499; Globulin 3.4 g/dL (1.3-4.6); Glomerular Filtration Rate 94.2 mL/min (90-130); Glucose 110 mg/dL (65-115); Osmolality Calculated 287 mOsm/kg (285-295); Potassium 4.1 mmol/L (3.5-5.1); Sodium 139 mmol/L (136-145); Total Bilirubin 0.2 mg/dL (0.15-1.2); Total Protein 7.3 g/dL (6.6-8.7)
[2023-08-07] MEDS: ketorolac 30 mg/mL INJ IVP (08:47)
[2023-08-07] MEDS: dexamethasone 10 mg/mL INJ IM (08:48)
[2023-08-07 08:49] VITALS: BP 125/78; PULSE 84; O2SAT 98
--- NOTE | 2023-08-07 09:43 | DCPLANNER ---
A message was sent to the ortho clinic on 08/07/23 at 0943.[facility] to contact patient for appt
== END 2023-08-07 09:21 | disposition home or self-care (01) ==
PROVIDERS: Emergency Provider Family Medicine
DX: R20.0 Anesthesia of skin (principal); M54.16 Radiculopathy, lumbar region; Z72.0 Tobacco use
CPT/HCPCS: 36415; 80053; 85025; 93005; 96372; 96374; 99284; J1100; J1885

== ENCOUNTER → 2023-08-14 08:45 | Outpatient (BNVA) | payer OTHER, SELFPAY | PROVIDERS: Referring Provider Family Medicine; Visit Provider Orthopaedic Surgery | DX: M54.16 Radiculopathy, lumbar region (principal); M54.9 Dorsalgia, unspecified | CPT/HCPCS: 72110 ==

== ENCOUNTER 2023-10-06 10:03 | Emergency (ER) | payer OTHER, SELFPAY ==
[2023-10-06 10:20] VITALS: BP 118/66; PULSE 83; RESP 16; TEMP 36.6; O2SAT 99
--- NOTE | 2023-10-06 10:26 | CT_ITS ---
WS: [id number] CT HEAD NONCONTRAST HISTORY: injury/GARAY TECHNIQUE: Contiguous axial imaging performed through the brain in 3.0 mm imaging. Bone and soft tiss ue windows. Sagittal and coronal reformats reviewed. All CT scans at [facility] use at least one of these dose optimization techniques: automated exposure control; mA and/or kV adjustment per pa tient size (includes targeted exams where dose is matched to clinical indication); or iterative recon struction. DLP: 1033.13 mGy.cm COMPARISON: 03/10/2015 No acute intracranial hemorrhage, midline shift or mass effect. No atrophy or prior infarcts or herniation. Ventricles: Normal size with no hydrocephalus. Paranasal sinuses: As visualized are clear. Mastoid air cells: Well pneumatized. Calvarium and scalp: Skull is intact with no soft tissue edema or swelling. CT/CT head wo con* [id number] IMPRESSION: Negative head CT.
--- NOTE | 2023-10-06 11:09 | ED_ITS ---
HPI - Headache General: Chief Complaint: Headache Stated Complaint: fall, hit head, headache Time Seen by Provider: 10/06/23 10:06 History of Present Illness: Associated symptoms: Deny confusion, nausea or vomiting Review of Systems Eyes: Denies: change in vision, blurry vision, photophobia, floaters or seeing flashes GI: Denies: nausea or vomiting Musc: Denies: neck pain Neuro: Reports: headache(s); Denies: numbness in extremities, weakness in extremities, sensory changes, lack of coordination, difficulty walking, frequent falls, dizziness, vertigo, confusion, behavioral changes, Slurred speech present, difficulty communicating thoughts, seizure-like activity, involuntary movements or restless legs PFSH ED PFSH: Medical History Sciatica of right side MRSA (methicillin resistant Staphylococcus aureus) infection delivery delivered Obesity (BMI 30-39.9) Family History Father Hypertension Arthritis Mother No problems noted. Social History Smoking and tobacco/nicotine status: current every day tobacco/nicotine user Quit status (tobacco/nicotine): not considering quitting Alcohol intake: former Substance/Drug Use: current Substance/Drug use frequency: few times a week Course Vital Signs: Vital signs: Vital Signs Temperature 97.8 F 10/06/23 10:20 Pulse Rate 45 L 10/06/23 11:11 Respiratory Rate 18 10/06/23 11:11 Blood Pressure 118/57 10/06/23 11:11 Pulse Oximetry 97 10/06/23 11:11 Oxygen Delivery Me thod Room Air 10/06/23 10:20 Discharge Plan Discharge Condition: Stable Prescriptions: No Action No Known Home Medications Referrals: Evita Dietz DO [Primary Care Provider] - Coding Level of Care Code ED Catalyst Concentration Operator for Giin Oreilly
[2023-10-06 11:11] VITALS: BP 118/57; PULSE 45; RESP 18; O2SAT 97
--- NOTE | 2023-10-06 11:45 | PC.PHAR ---
PT HAD GABAPENTIN 100MG, METHOCARBAMOL 500MG, AND NAPROXEN 500MG ORDERED ON 08/27/23 BUT NEVER PICKED UP.
--- NOTE | 2023-10-06 12:02 | ED_ITS ---
HPI - Head Injury 2 General: Chief complaint: Headache Stated complaint: fall, hit head, headache Time Seen by Provider: 10/06/23 10:06 Source: patient Mode of arrival: ambulatory Limitations: no limitations History of Present Illness: Patient is a 38-year-old female presents to ED today for evaluation of a head injury that she sustained yesterday when she was about to sit in a chair when she missed the chair and fell backwards and struck the back of her head. She does report LOC for a few seconds. Patient states that she feels fine now apart from a very minor headache. She is not having any neurologic complaints. No visual changes. No vomiting. She states she is only here because her family stated she needed to get checked out . MD Complaint: head injury Onset (ago): day(s) (yesterday) Mechanism of Injury: fall Place: home Loss of Consciousness: yes Severity: mild Radiation: none Other Injuries: none Associated symptoms: Reports no associated symptoms; Deny confusion, nausea, neck pain, vertigo or vomiting Review of Systems 2 Eyes: Denies: change in vision, blurry vision, photophobia, floaters or seeing flashes GI: Denies: nausea or vomiting Musc: Denies: neck pain Neuro: Reports: headache(s); Denies: numbness in extremities, weakness in extremities, sensory changes, lack of coordination, difficulty walking, frequent falls, dizziness, vertigo, confusion, behavioral changes, Slurred speech present, difficulty communicating thoughts, seizure-like activity, involuntary movements or restless legs PFSH ED 2 PFSH: Medical History Sciatica of right side MRSA (methicillin resistant Staphylococcus aureus) infection delivery delivered Obesity (BMI 30-39.9) Family History Father Hypertension Arthritis Mother No problems noted. Social History Smoking and tobacco/nicotine status: current every day tobacco/nicotine user Quit status (tobacco/nicotine): not considering quitting Alcohol intake: former Substance/Drug Use: current Substance/Drug use frequency: few times a week Physical Exam 2 Const: COMMON NORMALS: no acute distress, patient oriented x3, no limitations, alert and well nourished ORIENTATION/CONSCIOUSNESS: Yes awake, Yes oriented to person, Yes oriented to place and Yes oriented to time HENMT: COMMON NORMALS: normocephalic and atraumatic HEAD & SCALP: normal to inspection, normocephalic and atraumatic HEAD IMAGES: 1. mild tenderness posterior scalp; full painless ROM Neck/C-Spine: COMMON NORMALS: full ROM GENERAL: Yes normal visual inspection CERVICAL SPINE: Yes cervical ROM normal, No pain with cervical ROM, No Cervical spine tenderness, No step off deformity and No Paracervical muscle tenderness Neuro: NANCIE COMA SCALE: document GCS findings [place] coma scale eye opening: Spontaneous [place] coma scale verbal response: Orientated [place] coma scale motor response: Obey commands [place] coma scale total score: 15 COMMON NORMALS: patient oriented x3, CN's II-XII intact bilaterally, moves all extremities, no focal motor deficits and no sensory deficits noted S ENSORIUM/ORIENTATION: Yes alert, Yes oriented to person, Yes oriented to place and Yes oriented to time Course 2 Vital Signs: Vital signs: Vital Signs Temperature 97.8 F 10/06/23 10:20 Pulse Rate 45 L 10/06/23 11:11 Respiratory Rate 18 10/06/23 11:11 Blood Pressure 118/57 10/06/23 11:11 Pulse Oximetry 97 10/06/23 11:11 Oxygen Delivery Me thod Room Air 10/06/23 10:20 MDM - Head Injury Medcial Decision Making Head CT negative. She will be allowed discharge with return precautions. Differential Diagnosis Likely concussion without loss of consciousness, closed head injury, postconcussion syndrome and concussion with loss of consciousness Medical Records I reviewed the patient's medical records. All radiology interpretation(s) finalized by discharge Discharge Plan Discharge Patient Disposition: Home Clinical Impression: Minor head injury Qualifiers: Encounter type: initial encounter Qualified Code(s): S09.90XA - Unspecified injury of head, initial encounter Condition: Stable Prescriptions: No Action No Known Home Medications Discharge Orders: Discharge ED (Routine); Ordered 10/06/23 Ordered By: Brandee Trinh Referrals: Evita Dietz DO [Primary Care Provider] - Patient Instructions: Head Injury (DC) Activity Restrictions/Additional Instructions: Your head CT was negative here. You may follow-up with your primary care provider in a week or so if headache does not improve. He may return to the emergency department for severe headache, neck pain, visual changes, vomiting, or any other concerns you may have. Coding Level of Care Code ED Stitcher Utility for Gini Oreilly
== END 2023-10-06 12:12 | disposition home or self-care (01) ==
PROVIDERS: Emergency Provider Physician Assistant; PCP Family Medicine
DX: S09.8XXA Other specified injuries of head, initial encounter (principal); Z72.0 Tobacco use; W07.XXXA Fall from chair, initial encounter
CPT/HCPCS: 70450; 99284

== ENCOUNTER 2023-11-03 06:52 | Emergency (ER) | payer OTHER, SELFPAY ==
--- NOTE | 2023-11-03 06:59 | W.ED.ABDPA2 ---
HPI - Abdominal Pain General: Stated Complaint: vomitting, blood in stool, diarrhea Time Seen by Provider: 11/03/23 06:57 PFSH ED PFSH: Medical History Sciatica of right side MRSA (methicillin resistant Staphylococcus aureus) infection delivery delivered Obesity (BMI 30-39.9) Family History Father Hypertension Arthritis Mother No problems noted. Social History Smoking and tobacco/nicotine status: former use of tobacco/nicotine Quit status (tobacco/nicotine): not considering quitting Alcohol intake: former Substance/Drug Use: current Substance/Drug use frequency: few times a week Discharge Plan Discharge Condition: Stable Prescriptions: No Action fluticasone propionate [Flonase Allergy Relief] 50 mcg/actuation spray,suspension 2 spray intranasal DAILY Qty: 16 0RF Rx Instructions: administer into each nostril cetirizine [Zyrtec] 10 mg tablet 10 mg PO DAILY Qty: 30 0RF Referrals: Evita Dietz DO [Primary Care Provider] - Coding Level of Care Code ED Biofuels Research Scientist for Gini Oreilly
[2023-11-03 07:43] LABS: Basophils # 0.1 10^3/uL (0.0-0.1); Basophils % 0.5 %; Eosinophils # 0.1 10^3/uL (0.0-0.8); Eosinophils % 1.2 %; Hematocrit 45.8 % (36-47); Lymphocytes % 17.6 %; Mean Corpuscular HGB Conc 31.7 g/dL (30-55); Mean Corpuscular Hemoglobin 28.7 pg (27-33); Mean Corpuscular Volume 90.5 fl (85-98); Mean Platelet Volume 10.7 fL (7.4-10.4); Monocytes # 0.8 10^3/uL (0.2-0.9); Monocytes % 6.8 %; Neutrophils # 8.18 10^3/uL (1.8-7.7); Neutrophils % 73.6 %; Nucleated Red Blood Cells % 0 %; Platelet Count 172 10^3/cmm (157-399); Red Blood Count 5.06 10^6/uL (3.85-5.65); Red Cell Distribution Width 13.4 % (12.1-15.1)
[2023-11-03 07:59] LABS: Alanine Aminotransferase 13 U/L (0-33); Albumin Level 4.2 g/dL (3.5-5.2); Alkaline Phosphatase 87 U/L (35-105); Anion Gap 18.1 (5-19); Aspartate Amino Transferase 12 U/L (0-32); Blood Urea Nitrogen 10 mg/dL (6-20); Calcium 9.1 mg/dL (8.5-10.5); Carbon Dioxide 20 mmol/L (22-29); Chloride 103 mmol/L (98-107); Globulin 2.7 g/dL (1.3-4.6); Glomerular Filtration Rate 112.5 mL/min (90-130); Glucose 123 mg/dL (65-115); Osmolality Calculated 284 mOsm/kg (285-295); Potassium 4.1 mmol/L (3.5-5.1); Sodium 137 mmol/L (136-145); Total Bilirubin 0.2 mg/dL (0.15-1.2); Total Protein 6.9 g/dL (6.6-8.7)
== END 2023-11-03 08:21 | disposition left against medical advice (07) ==
PROVIDERS: Family Medicine; Emergency Provider Physician Assistant; PCP Family Medicine
DX: Z53.21 Procedure and treatment not carried out due to patient leaving prior to being seen by health care provider (principal)
CPT/HCPCS: 36415; 80053; 85025

== ENCOUNTER 2023-11-03 08:24 | Emergency (ER) | payer OTHER, SELFPAY ==
[2023-11-03 08:36] VITALS: BP 135/79; PULSE 73; RESP 20; TEMP 36.2; O2SAT 98; BMI 38.6
[2023-11-03 08:53] LABS: Lipase 29 U/L (13-60)
[2023-11-03 09:01] LABS: HCG, Serum Qual Negative (Negative)
--- NOTE | 2023-11-03 09:08 | W.ED.NAVMDI ---
HPI - Nausea/Vomiting/Diarrhea General: Chief complaint: Abdominal Pain Stated complaint: abd pain Time Seen by Provider: 11/03/23 08:25 Source: patient Mode of arrival: ambulatory Limitations: no limitations History of Present Illness: Patient is a 38-year-old female presents to ED today with a complaint of abdominal pain, nausea, vomiting, diarrhea. Patient states symptoms have been present since 1 AM this morning however looking at previous documentation she was seen at the walk-in clinic on 10/31 and documentation then noted puking and stomach ache since yesterday, low grade temp yesterday, now has none stop diarrhea since last night . Patient states she is having bright red bloody diarrhea. Abdominal cramping that is intermittent. Thinks she may have food poisoning. States she ate pork chops and macaroni salad yesterday however several other family members ate the same food and they are not ill. She is not reporting fevers for me. She has not had any hematemesis. Of note-patient was here earlier but left waiting room and shortly later returned-labs were drawn from waiting room on previous visit and resulted so these were not reordered. MD elicited complaint: nausea, vomiting, diarrhea and abdominal pain Onset (ago): day(s) Description of diarrhea: blood Associated nausea: Yes Associated abdominal pain: Yes Location of pain: Diffuse Radiation: diffuse Pain consistency: intermittent Severity: moderate Quality: cramping Exacerbating factors: none Relieving factors: none Associated symtoms: Reports nausea; Denies chest pain, dizziness, dysuria, fatigue, headache(s) or malaise Review of Systems Const: Denies: fever(s), chills, body aches, fatigue or malaise Card: Denies: chest pain Resp: Denies: dyspnea GI: Reports: abdominal pain, nausea, vomiting, diarrhea, GI cramping and hematochezia; Denies: hematemesis or melena : Denies: flank pain, difficulty voiding, dysuria, urinary frequency, urinary urgency or urinary hesitancy Musc: Denies: neck pain, back pain, extremity pain, extremity swelling or joint pain Skin/Breast: Denies: rash Neuro: Denies: headache(s), numbness in extremities, weakness in extremities, sensory changes or dizziness PFS ED PFSH: Medical History Sciatica of right side MRSA (methicillin resistant Staphylococcus aureus) infection delivery delivered Obesity (BMI 30-39.9) Family History Father Hypertension Arthritis Mother No problems noted. Social History Smoking and tobacco/nicotine status: former use of tobacco/nicotine Quit status (tobacco/nicotine): not considering quitting Alcohol intake: former Substance/Drug Use: current Substance/Drug use frequency: few times a week Female Reproductive History: Date of last menstrual period: 10/31/23 Physical Exam Const: COMMON NORMALS: no acute distress, patient oriented x3, no limitations, alert and well nourished GENERAL APPEARANCE: cooperative NUTRITIONAL APPEARANCE: obese ORIENTATION/CONSCIOUSNESS: Yes awake, Yes oriented to person, Yes oriented to place and Yes oriented to time Eye: COMMON NORMALS: no scleral icterus Neck/C-Spine: COMMON NORMALS: full ROM, no lymphadenopathy, supple and no meningeal signs Chest: COMMONS NORMALS: normal inspection of the chest Resp: COMMON NORMALS: normal respiratory effort and clear to auscultation bilaterally AUSCULTATION: clear to auscultation bilaterally Cardio: COMMON NORMALS: regular rate and regular rhythm RATE: regular rate RHYTHM: regular rhythm GI: COMMON NORMALS: Normal to inspection, nondistended, normoactive bowel sounds present, Soft to palpation, No hepatosplenomegaly present and no masses INSPECTION: Yes normal to inspection PALPATION: Yes Soft to palpation, Yes Tenderness to palpation present (GI) (lower abdomen), No Guarding due to palpation present (GI), No Rigid due to palpation and Yes No hepatosplenomegaly present RECTAL EXAM: visual inspection normal and no hemorrhoids noted : COMMON NORMALS: Yes no CVA tenderness BLADDER/KIDNEY EXAM: Yes no CVA tenderness Back/Pelvis: COMMON NORMALS: no CVA tenderness and thoracic and lumbar spine normal to inspection Extremity: COMMON NORMALS: normal to inspection GENERAL: Yes normal exam except as noted Neuro: NANCIE COMA SCALE: document GCS findings [place] coma scale eye opening: Spontaneous [place] coma scale verbal response: Orientated [place] coma scale motor response: Obey commands [place] coma scale total score: 15 COMMON NORMALS: patient oriented x3, moves all extremities, no focal motor deficits and no sensory deficits noted SENSORIUM/ORIENTATION: Yes alert, Yes oriented to person, Yes oriented to place and Yes oriented to time MENINGEAL SIGNS: Yes no meningeal signs Skin: COMMON NORMALS: no rashes or lesions noted GENERAL SKIN EXAM: no rashes or lesions noted Course Vital Signs: Vital signs: Vital Signs Temperature 97.2 F L 11/03/23 08:36 Pulse Rate 73 11/03/23 08:36 Respiratory Rate 20 H 11/03/23 08:36 Blood Pressure 95/82 11/03/23 11:30 Pulse Oximetry 98 11/03/23 11:00 Oxygen Delivery Me thod Room Air 11/03/23 08:36 MDM - Nausea/Vomiting/Diarrhea Medical Decision Making Patient has not been able to produce a bowel movement here for stool cultures. After IV fluids/antiemetics/ pain medications patient is reporting significant relief and is wanting to go home. Vital signs are stable. Blood work is unremarkable. She did state her daughter called during her ED stay and is now reporting similar symptoms making patient's etiology most likely food related gastroenteritis. Discussed how I would like her to be re-seen in 24 to 48 hours if symptoms or not significantly better. Sooner precautions discussed. Differential Diagnosis Likely food poisoning and gastroenteritis Medical Records I reviewed the patient's medical records. Lab Data I reviewed the patient's lab results. Radiology Impressions Abdomen/Pelvis CT 11/03/23 09:20 IMPRESSION: 1. Borderline splenomegaly. 2. Please see above comments for additional details. Laboratory Results Lipase 29 U/L (13-60) 11/03/23 07:17 HCG, Qual Negative (Negative) 11/03/23 07:17 Urine Color Yellow (Yellow) 11/03/23 09:54 Urine Appearance Clear (CLEAR) 11/03/23 09:54 Urine pH 5 (5-7) 11/03/23 09:54 Ur Specific [place] 1.010 (1.005-1.030) 11/03/23 09:54 Urine Protein Neg (Negative) 11/03/23 09:54 Urine Glucose (UA) Norm (Normal) 11/03/23 09:54 Urine Ketones Negative (Negative) 11/03/23 09:54 Urine Blood Neg (Negative) 11/03/23 09:54 Urine Nitrate Negative (Negative) 11/03/23 09:54 Urine Bilirubin Neg (Negative) 11/03/23 09:54 Urine Urobilinogen Norm mg/dL (Negative) 11/03/23 09:54 Ur Leukocyte Esterase Negative (Negative) 11/03/23 09:54 All radiology interpretation(s) finalized by discharge Discharge Plan Discharge Patient Disposition: Home Clinical Impression: Gastroenteritis Condition: Stable Prescriptions: New ondansetron 4 mg tablet,disintegrating 4 mg PO Q8H PRN (Reason: nausea and vomiting) Qty: 14 0RF No Action tizanidine 2 mg tablet 2 mg PO BID PRN (Reason: Pain) Discharge Orders: Discharge ED (Routine); Ordered 11/03/23 Ordered By: Brandee Trinh Referrals: Evita Dietz DO [Primary Care Provider] - Patient Instructions: Gastroenteritis (DC), Acute Nausea and Vomiting (DC) Activity Restrictions/Additional Instructions: As we discussed if symptoms do not improve over the next 48 hours you need to return to the emergency department or follow-up with primary care especially if bloody stools persists. You need to return sooner for severe abdominal pain, worsening bloody stools, fevers, or any other concerns you may have. You were not able to provide a stool sample today for stool cultures. Coding Level of Care Code ED Front End Technician for Gini Oreilly
--- NOTE | 2023-11-03 09:20 | CTR_ITS ---
PROCEDURE INFORMATION: Exam: CT Abdomen And Pelvis With Contrast Exam date and time: 11/03/2023 11:07 AM Age: 38 years old Clinical indication: Abdominal pain; Generalized; Additional info: Abdominal pain, vomiting, bloody diarrhea TECHNIQUE: Imaging protocol: Computed tomography of the abdomen and pelvis with contrast. Radiation optimization: All CT scans at this facility use at least one of these dose optimization techniques: automated exposure control; mA and/or kV adjustment per patient size (includes targeted exams where dose is matched to clinical indication); or iterative reconstruction. Contrast material: OMNI 350; Contrast volume: 100 ml; Contrast route: INTRAVENOUS (IV); COMPARISON: CT kidney stone [id number] 01/26/2017 2:26 PM RADIATION DOSE METRICS: Total DLP (mGy-cm): 1063.79 FINDINGS: Lungs: Lung bases are clear as visualized. Liver: There is fatty infiltration of the liver. The liver is otherwise normal in appearance. Gallbladder and biliary ducts: Normal. No calcified stones. No ductal dilation. Pancreas: Normal. No ductal dilation. Spleen: The spleen is borderline enlarged measuring 13 cm in maximal dimension. Adrenal glands: Normal. No mass. Kidneys and ureters: Normal. No hydronephrosis. Stomach and bowel: There are a few scattered colonic diverticula. No bowel wall thickening is appreciated. No bowel dilatation is identified. Appendix: No evidence of appendicitis. Intraperitoneal space: Unremarkable. No free air. No significant fluid collection. Vasculature: Unremarkable. No abdominal aortic aneurysm. Lymph nodes: Unremarkable. No enlarged lymph nodes. Urinary bladder: Unremarkable as visualized. Reproductive: Unremarkable as visualized. Bones/joints: Unremarkable. No acute fracture. Soft tissues: There is a small fat filled periumbilical hernia. CT/CT abdomen pelvis w con* [id number] IMPRESSION: 1. Borderline splenomegaly. 2. Please see above comments for additional details.
[2023-11-03] MEDS: sodium chloride 0.9% 1,000 ML 999 ML IV (09:36)
[2023-11-03] MEDS: ondansetron 2 mg/ML SDV 2 mL 4 MG IVP (09:37)
[2023-11-03] MEDS: morphine 4 mg/mL SDV 1 mL IVP (09:38)
[2023-11-03 09:55] VITALS: BP 135/92; O2SAT 97
[2023-11-03 10:02] LABS: Add Urine Microscopic? NO; Charge for UA Resulting for Rev
[2023-11-03 10:05] LABS: Bilirubin Urine Neg (Negative); Blood Urine Neg (Negative); Glucose Urine UA Norm (Normal); Ketones Urine Negative (Negative); Leukocyte Esterase Urine Negative (Negative); Nitrate Urine Negative (Negative); Protein Urine Neg (Negative); Urine Appearance Clear (CLEAR); Urine Color Yellow (Yellow); Urobilinogen Urine Norm (Negative); pH Urine 5 (5-7)
[2023-11-03 10:10] VITALS: BP 126/73; O2SAT 96
[2023-11-03 10:30] VITALS: BP 126/73; O2SAT 96
[2023-11-03 11:00] VITALS: O2SAT 98
[2023-11-03] MEDS: iohexol 350 mg/mL 500 mL Btl (per mL) IV (11:09)
[2023-11-03 11:30] VITALS: BP 95/82
== END 2023-11-03 11:51 | disposition home or self-care (01) ==
PROVIDERS: Emergency Provider Physician Assistant; PCP Family Medicine
DX: K52.9 Noninfective gastroenteritis and colitis, unspecified (principal); Z87.891 Personal history of nicotine dependence
CPT/HCPCS: 74177; 81003; 83690; 84703; 96361; 96374; 96375; 99285; J2270; J2405; J7030; Q9967

== ENCOUNTER 2024-02-09 15:18 | Emergency (ER) | payer OTHER, SELFPAY ==
[2024-02-09 15:24] VITALS: BP 116/67; PULSE 75; RESP 22; TEMP 36.7; O2SAT 95; BMI 40.3
--- NOTE | 2024-02-09 15:29 | XRR_ITS ---
PROCEDURE INFORMATION: Exam: XR Chest Exam date and time: 02/09/2024 3:39 PM Age: 38 years old Clinical indication: Cough TECHNIQUE: Imaging protocol: Radiologic exam of the chest. Views: 1 view. COMPARISON: CR XR chest 1V portable [id number] 06/04/2019 10:19 AM FINDINGS: Lungs: Unremarkable. No consolidation. Pleural spaces: Unremarkable. No pleural effusion. No pneumothorax. Heart/Mediastinum: Unremarkable. No cardiomegaly. Bones/joints: Unremarkable. XR/XR chest 1V portable [id number] IMPRESSION: No acute findings.
--- NOTE | 2024-02-09 15:39 | W.ED.URI ---
HPI - URI/Sore Throat General: Chief Complaint: Shortness of Breath/Dyspnea Stated Complaint: sob Time Seen by Provider: 02/09/24 15:29 Source: patient Mode of arrival: ambulatory Limitations: no limitations History of Present Illness: Patient is a 38-year-old female presents to ED today with a complaint of productive cough and shortness of breath over the past 5 days or so. She states she was recently seen at the walk-in clinic and placed on Prednisone 20mg daily as well as Tessalon Perles. She does state the Tessalon Perles worked when she used them but has now ran out. She arrives in no acute distress upon arrival here. Her vital signs are stable. She is an everyday smoker. She has also been using albuterol nebulizers. MD elicited complaint: cough Onset (ago): day(s) Consistency: constant Severity: moderate Description of mucous: yellow Able to tolerate fluids by mouth: Yes Exacerbating factors: nothing Relieving factors: cough suppressant Associated symptoms: Deny abdominal pain, chills, chest pain, diarrhea, fever(s), headache(s), nasal congestion, nausea, sinus pain or vomiting Related Data Previous Rx's Medication Instructions Recorded ibuprofen 800 mg tablet 800 mg PO Q8H PRN pain #20 tabs 12/31/23 nitrofurantoin 100 mg PO Q12H 7 days #14 caps 02/05/24 monohydrate/macrocrystals 100 mg capsule (Macrobid) benzonatate 100 mg capsule 100 mg PO TID #14 caps 02/09/24 dexamethasone 6 mg tablet 6 mg PO DAILY #6 tabs 02/09/24 Allergies Allergy/AdvReac Type Severity Reaction Status Date / Time Penicillins Allergy Unknown Verified 02/09/24 15:27 Review of Systems Const: Denies: fever(s), chills, body aches, fatigue or malaise ENMT: Denies: throat pain, odynophagia, nasal discharge, nasal congestion or sinus pain Card: Denies: chest pain, edema, lightheadedness, syncope or pre-syncope Resp: Reports: dyspnea, productive cough and chest congestion; Denies: wheezing or hemoptysis GI: Denies: abdominal pain, nausea, vomiting or diarrhea Musc: Denies: neck pain, back pain, extremity pain, joint pain or joint swelling Skin/Breast: Denies: rash Neuro: Denies: headache(s) PFSH ED PFSH: Medical History Sciatica of right side MRSA (methicillin resistant Staphylococcus aureus) infection delivery delivered Obesity (BMI 30-39.9) Family History Father Hypertension Arthritis Mother No problems noted. Social History Smoking and tobacco/nicotine status: former use of tobacco/nicotine Quit status (tobacco/nicotine): not considering quitting Alcohol intake: former Substance/Drug Use: current Substance/Drug use frequency: few times a week Physical Exam Const: COMMON NORMALS: no acute distress, patient oriented x3, no limitations, alert and well nourished GENERAL APPEARANCE: cooperative NUTRITIONAL APPEARANCE: obese (BMI 40.3) HENMT: FACE & SINUS: normal facial exam Neck/C-Spine: COMMON NORMALS: no lymphadenopathy Chest: COMMONS NORMALS: normal inspection of the chest and normal palpation of entire chest wall Resp: COMMON NORMALS: normal respiratory effort AUSCULTATION: other (course sounding lung sounds-improved with coughing) Cardio: COMMON NORMALS: regular rate and regular rhythm RATE: regular rate RHYTHM: regular rhythm Neuro: COMMON NORMALS: patient oriented x3 SENSORIUM/ORIENTATION: Yes alert Course Vital Signs: Vital signs: Vital Signs Temperature 98.0 F 02/09/24 15:24 Pulse Rate 75 02/09/24 15:24 Respiratory Rate 22 H 02/09/24 15:24 Blood Pressure 116/67 02/09/24 15:24 Pulse Oximetry 95 02/09/24 15:24 Oxygen Delivery Me thod Room Air 02/09/24 15:24 MDM - URI/Sore Throat Medical Decision Making Patient is a 38-year-old here for a complaint of a productive cough over the past several days. She clinically appears no acute distress. Vital signs are stable. Respiratory panel collected and pending. Her CXR showing no acute findings. I agree with previous diagnosis in that this is most likely a viral bronchitis. She did get relief from her Tessalon Perles so we will refill this. She can continue her nebulizer treatments at home. Discussed other conservative therapies she can try. She was on a low-dose of prednisone over the past few days. Will try her on dexamethasone for the next few days. Recommend smoking cessation. Return to ED precautions given. Differential Diagnosis Likely upper respiratory infection, viral infection and bronchitis Medical Records I reviewed the patient's medical records. Lab Data Radiology Impressions Chest X-Ray 02/09/24 15:29 IMPRESSION: No acute findings. All radiology interpretation(s) finalized by discharge Discharge Plan Discharge Patient Disposition: Home Clinical Impression: Bronchitis Condition: Stable Prescriptions: New dexamethasone 6 mg tablet 6 mg PO DAILY Qty: 6 0RF Continued benzonatate 100 mg capsule 100 mg PO TID Qty: 14 0RF Discontinued prednisone 20 mg tablet 20 mg PO DAILY Qty: 5 0RF No Action ibuprofen 800 mg tablet 800 mg PO Q8H PRN (Reason: pain) Qty: 20 0RF nitrofurantoin monohyd/m-cryst [Macrobid] 100 mg capsule 100 mg PO Q12H 7 Days Qty: 14 0RF Rx Instructions: must administer with a meal/food Discharge Orders: Discharge ED (Routine); Ordered 02/09/24 Ordered By: Brandee Trinh Referrals: Evita Dietz DO [Primary Care Provider] - Patient Instructions: Bronchitis (Acute) - Adult, Acute Bronchitis (ED) Activity Restrictions/Additional Instructions: As we discussed, we obtained a respiratory panel today. You will be called for any positive results of this. I do not visualize any pneumonia on your chest xrray today. I agree this most likely is a viral bronchitis. There are no indications for antibiotics at this time as over 95% of these infections are viral. Continue your albuterol nebulizer treatments. You may also try other remedies such as elderberry syrup, lemon/honey, Vicks vapor rub, steam showers, etc. Coding Level of Care Code ED Pull Socket Assembler for Gini Oreilly
[2024-02-09] MEDS: methylPREDNISolone sod succ 125 mg/2 mL INJ IM (16:11)
[2024-02-09 17:13] VITALS: BP 112/73; PULSE 70; RESP 16; O2SAT 99
[2024-02-09 17:40] LABS: Adenovirus Not Detected (NOT DETECT); Chlamydia Pneumoniae Not Detected (NOT DETECT); Coronavirus 229E,HKU1,NL63,OC4 Not Detected (NOT DETECT); Human Metapneumovirus Not Detected (NOT DETECT); Human Rhinovirus/Enterovirus Detected (NOT DETECT); Influenza A Not Detected (NOT DETECT); Influenza A H1 Not Detected (NOT DETECT); Influenza A H1-2009 Not Detected (NOT DETECT); Influenza A H3 Not Detected (NOT DETECT); Influenza B Not Detected (NOT DETECT); Mycoplasma Pneumoniae Not Detected (NOT DETECT); Parainfluenza Virus Type 1 Not Detected (NOT DETECT); Parainfluenza Virus Type 2 Not Detected (NOT DETECT); Parainfluenza Virus Type 3 Not Detected (NOT DETECT); Parainfluenza Virus Type 4 Not Detected (NOT DETECT); Respiratory Syncytial Virus A Not Detected (NOT DETECT); Respiratory Syncytial Virus B Not Detected (NOT DETECT); SARS-COV-2 Not Detected (NOT DETECT)
== END 2024-02-09 16:22 | disposition home or self-care (01) ==
PROVIDERS: Emergency Provider Physician Assistant; PCP Family Medicine
DX: J40 Bronchitis, not specified as acute or chronic (principal); Z87.891 Personal history of nicotine dependence
CPT/HCPCS: 71045; 87486; 87581; 87633; 96372; 99284; J2919

== ENCOUNTER 2024-03-25 12:33 | Emergency (ER) | payer OTHER, SELFPAY ==
[2024-03-25 12:40] VITALS: BP 152/98; PULSE 101; RESP 16; TEMP 36.7; O2SAT 96; BMI 41.1
--- NOTE | 2024-03-25 12:49 | CTR_ITS ---
PROCEDURE INFORMATION: Exam: CT Neck With Contrast Exam date and time: 03/25/2024 1:25 PM Age: 38 years old Clinical indication: Mass, lump, or swelling in neck; Left; Additional info: Left neck swelling TECHNIQUE: Imaging protocol: Computed tomography of the neck with contrast. Radiation optimization: All CT scans at this facility use at least one of these dose optimization techniques: automated exposure control; mA and/or kV adjustment per patient size (includes targeted exams where dose is matched to clinical indication); or iterative reconstruction. Contrast material: OMNI 350; Contrast volume: 100 ml; Contrast route: INTRAVENOUS (IV); COMPARISON: CT head wo con* [id number] 10/06/2023 11:10 AM RADIATION DOSE METRICS: Total DLP (mGy-cm): 327.13 FINDINGS: Salivary glands: Slightly enlarged, hypervascular left submandibular gland with stranding and disorganized fluid in the surrounding fat consistent with left submandibulitis and surrounding soft tissue infection. No calcifications in the left submandibular gland. No associated abscess. Unremarkable right submandibular gland. Unremarkable parotid glands. Pharynx: Unremarkable. No significant tonsillar enlargement. Prevertebral and retropharyngeal spaces: Unremarkable. Larynx: Unremarkable. Epiglottis is normal. Thyroid: Normal. No enlarged or calcified nodules. Trachea: Visualized trachea is unremarkable. Lungs: Unremarkable as visualized. Lymph nodes: Unremarkable. No lymphadenopathy. Bones/joints: Unremarkable. No acute fracture. Soft tissues: Unremarkable. No significant soft tissue swelling. CT/CT neck w con* [id number] IMPRESSION: 1. Slightly enlarged, hypervascular left submandibular gland with stranding and disorganized fluid in the surrounding fat consistent with left submandibulitis and surrounding soft tissue infection. No calcifications in the left submandibular gland. No associated abscess. 2. No other acute findings.
--- NOTE | 2024-03-25 12:50 | W.ED.EAR ---
HPI - Ear Problem General: Chief complaint: Ear Stated complaint: Left side throat swollen, tender and hot to touch Time Seen by Provider: 03/25/24 12:45 Source: patient Mode of arrival: ambulatory Limitations: no limitations History of Present Illness: 38-year-old female states she has had some neck swelling this this morning. Left lateral neck states is painful as well. She denies any difficulty swallowing she is able to speak in full senses here. She has had all her teeth removed. Denies any fever she had some slight left ear pain as well Associated symptoms: Reports ear or mastoid pain and neck pain; Denies fever(s) or headache(s) Related Data Home Medications Medication Instructions Recorded Confirmed gabapentin 100 mg capsule 100 mg PO TID 03/25/24 03/25/24 Previous Rx's Medication Instructions Recorded clindamycin HCl 300 mg capsule 300 mg PO Q8H 7 days #21 caps 03/25/24 Allergies Allergy/AdvReac Type Severity Reaction Status Date / Time Penicillins Allergy Unknown Verified 02/09/24 15:27 Review of Systems Const: Denies: fever(s), chills, body aches or change in appetite ENMT: Reports: ear or mastoid pain; Denies: throat pain Card: Denies: chest pain Resp: Denies: dyspnea GI: Denies: abdominal pain, nausea, vomiting or diarrhea Musc: Reports: neck pain; Denies: back pain Skin/Breast: Denies: rash Neuro: Denies: headache(s) [facility] ED PFSH: Medical History Sciatica of right side MRSA (methicillin resistant Staphylococcus aureus) infection delivery delivered Obesity (BMI 30-39.9) Family History Father Hypertension Arthritis Mother No problems noted. Social History Smoking and tobacco/nicotine status: former use of tobacco/nicotine Quit status (tobacco/nicotine): not considering quitting Alcohol intake: former Substance/Drug Use: current Substance/Drug use frequency: few times a week Physical Exam Const: COMMON NORMALS: no acute distress, patient oriented x3 and healthy appearing HENMT: COMMON NORMALS: normocephalic and atraumatic HEAD & SCALP: normocephalic and atraumatic OTHER: Think of all been removed no dental abscess noted no trismus Neck/C-Spine: COMMON NORMALS: full ROM and supple OTHER: Slight swelling over the left lateral neck with tenderness Chest: COMMONS NORMALS: normal inspection of the chest and normal palpation of entire chest wall Resp: COMMON NORMALS: normal respiratory effort Cardio: COMMON NORMALS: regular rate RATE: regular rate GI: COMMON NORMALS: Soft to palpation PALPATION: Yes Soft to palpation Extremity: COMMON NORMALS: normal to inspection and full ROM Neuro: COMMON NORMALS: patient oriented x3, moves all extremities and no focal motor deficits Psych: COMMON NORMALS: mental status grossly normal, Normal thought process present and cooperative THOUGHT PROCESS: Normal thought process present Skin: COMMON NORMALS: no rashes or lesions noted and no wounds GENERAL SKIN EXAM: no rashes or lesions noted Course Vital Signs: Vital signs: Vital Signs Temperature 98.0 F 03/25/24 12:40 Pulse Rate 101 H 03/25/24 12:40 Respiratory Rate 16 03/25/24 12:40 Blood Pressure 152/98 03/25/24 12:40 Pulse Oximetry 96 03/25/24 12:40 Oxygen Delivery Me thod Room Air 03/25/24 12:40 MDM - Ear Medical Decision Making Patient presents here with left neck pain swelling she does have inflammation of her submandibular gland white count is normal no airway involvement no abscess will start on clindamycin she is follow-up with her PCP or ENT return if worsening she understands agrees to plan Medical Records I reviewed the patient's medical records. Lab Data I reviewed the patient's lab results. 03/25/24 12:58 03/25/24 12:[address] 03/25/24 12:49 IMPRESSION: 1. Slightly enlarged, hypervascular left submandibular gland with stranding and disorganized fluid in the surrounding fat consistent with left submandibulitis and surrounding soft tissue infection. No calcifications in the left submandibular gland. No associated abscess. 2. No other acute findings. Laboratory Results WBC 10.22 10^3/uL (3.29-11.43) 03/25/24 12:58 RBC 4.99 10^6/uL (3.85-5.65) 03/25/24 12:58 Hgb 14.40 g/dL (11.27-16.99) 03/25/24 12:58 Hct 43.3 % (36-47) 03/25/24 12:58 MCV 86.8 fl (85-98) 03/25/24 12:58 MCH 28.9 pg (27-33) 03/25/24 12:58 MCHC 33.3 g/dL (30-55) 03/25/24 12:58 RDW 13.3 % (12.1-15.1) 03/25/24 12:58 Plt Count 275 10^3/cmm (157-399) 03/25/24 12:58 MPV 9.2 fL (7.4-10.4) 03/25/24 12:58 Neut % (Auto) 64.4 % 03/25/24 12:58 Lymph % (Auto) 25.2 % 03/25/24 12:58 [place] % (Auto) 7.2 % 03/25/24 12:58 Eos % (Auto) 2.3 % 03/25/24 12:58 Baso % (Auto) 0.4 % 03/25/24 12:58 Neut # (Auto) 6.57 10^3/uL (1.8-7.7) 03/25/24 12:58 Lymph # (Auto) 2.6 10^3/uL (0.8-4.8) 03/25/24 12:58 [place] # (Auto) 0.7 10^3/uL (0.2-0.9) 03/25/24 12:58 Eos # (Auto) 0.2 10^3/uL (0.0-0.8) 03/25/24 12:58 Baso # (Auto) 0.0 10^3/uL (0.0-0.1) 03/25/24 12:58 Nucleated RBC % (auto) 0 % 03/25/24 12:58 Nucleated RBCs # 0.0 /100WBC 03/25/24 12:58 Sodium 140 mmol/L (136-145) 03/25/24 12:58 Potassium 4.3 mmol/L (3.5-5.1) 03/25/24 12:58 Chloride 103 mmol/L (98-107) 03/25/24 12:58 Carbon Dioxide 27 mmol/L (22-29) 03/25/24 12:58 Anion Gap 14.3 (5-19) 03/25/24 12:58 BUN 6 mg/dL (6-20) 03/25/24 12:58 Creatinine 0.7 mg/dL (0.5-0.9) 03/25/24 12:58 GFR Calculation 94.2 mL/min (90-130) 03/25/24 12:58 Glucose 126 mg/dL (65-115) H 03/25/24 12:58 Calculated Osmolality 289 mOsm/kg (285-295) 03/25/24 12:58 Calcium 8.6 mg/dL (8.5-10.5) 03/25/24 12:58 Total Bilirubin 0.3 mg/dL (0.15-1.2) 03/25/24 12:58 AST 16 U/L (0-32) 03/25/24 12:58 ALT 11 U/L (0-33) 03/25/24 12:58 Alkaline Phosphatase 83 U/L (35-105) 03/25/24 12:58 Total Protein 7.2 g/dL (6.6-8.7) 03/25/24 12:58 Albumin 4.2 g/dL (3.5-5.2) 03/25/24 12:58 Globulin 3.0 g/dL (1.3-4.6) 03/25/24 12:58 All radiology interpretation(s) finalized by discharge Discharge Plan Discharge Patient Disposition: Home Clinical Impression: Submandibular gland inflammation Condition: Stable Prescriptions: New clindamycin HCl 300 mg capsule 300 mg PO Q8H 7 Days Qty: 21 0RF No Action gabapentin 100 mg capsule 100 mg PO TID Discharge Orders: Discharge ED (Routine); Ordered 03/25/24 Ordered By: Tyree Burnett Referrals: Arcenio Perdomo MD [Physician] - 4-7 days Evita Dietz DO [Primary Care Provider] - Discharge Diet: Advance as tolerated Discharge Activity: Resume usual activity Patient Instructions: Sialoadenitis (ED) Coding Level of Care Code ED Feed Adviser for Gini Oreilly
[2024-03-25 13:07] LABS: Basophils % 0.4 %; Eosinophils # 0.2 10^3/uL (0.0-0.8); Eosinophils % 2.3 %; Hematocrit 43.3 % (36-47); Lymphocytes # 2.6 10^3/uL (0.8-4.8); Lymphocytes % 25.2 %; Mean Corpuscular HGB Conc 33.3 g/dL (30-55); Mean Corpuscular Hemoglobin 28.9 pg (27-33); Mean Corpuscular Volume 86.8 fl (85-98); Mean Platelet Volume 9.2 fL (7.4-10.4); Monocytes # 0.7 10^3/uL (0.2-0.9); Monocytes % 7.2 %; Neutrophils # 6.57 10^3/uL (1.8-7.7); Neutrophils % 64.4 %; Nucleated Red Blood Cells % 0 %; Platelet Count 275 10^3/cmm (157-399); Red Blood Count 4.99 10^6/uL (3.85-5.65); Red Cell Distribution Width 13.3 % (12.1-15.1); White Blood Count 10.22 10^3/uL (3.29-11.43)
[2024-03-25 13:25] LABS: Alanine Aminotransferase 11 U/L (0-33); Albumin Level 4.2 g/dL (3.5-5.2); Alkaline Phosphatase 83 U/L (35-105); Anion Gap 14.3 (5-19); Aspartate Amino Transferase 16 U/L (0-32); Blood Urea Nitrogen 6 mg/dL (6-20); Calcium 8.6 mg/dL (8.5-10.5); Carbon Dioxide 27 mmol/L (22-29); Chloride 103 mmol/L (98-107); Creatinine Clr Calc Pharmacy 132.6535; Glomerular Filtration Rate 94.2 mL/min (90-130); Glucose 126 mg/dL (65-115); Osmolality Calculated 289 mOsm/kg (285-295); Potassium 4.3 mmol/L (3.5-5.1); Sodium 140 mmol/L (136-145); Total Bilirubin 0.3 mg/dL (0.15-1.2); Total Protein 7.2 g/dL (6.6-8.7)
[2024-03-25] MEDS: iohexol 350 mg/mL 500 mL Btl (per mL) IV (13:28)
[2024-03-25 14:35] VITALS: BP 131/86; PULSE 76; O2SAT 98
--- NOTE | 2024-03-26 00:38 | DCPLANNER ---
Sent referral to Dr Perdomo's ENT office
== END 2024-03-25 14:36 | disposition home or self-care (01) ==
PROVIDERS: Emergency Provider Emergency Medicine; PCP Family Medicine
DX: K11.8 Other diseases of salivary glands (principal); Z87.891 Personal history of nicotine dependence
CPT/HCPCS: 36415; 70491; 80053; 85025; 99285

== ENCOUNTER 2024-05-08 14:21 | Emergency (ER) | payer OTHER, SELFPAY ==
[2024-05-08] VITALS (7 sets, daily range): BP systolic 100–114; BP diastolic 67–79; PULSE 64–107; RESP 16–18; TEMP 36.7–36.9; O2SAT 93–100; BMI 39.4
[2024-05-08] MEDS: ondansetron 2 mg/ML SDV 2 mL 4 MG IVP (15:21)
[2024-05-08 15:24] LABS: Basophils # 0.1 10^3/uL (0.0-0.1); Basophils % 0.3 %; Eosinophils # 0.1 10^3/uL (0.0-0.8); Eosinophils % 0.8 %; Hematocrit 43.2 % (36-47); Lymphocytes # 0.9 10^3/uL (0.8-4.8); Lymphocytes % 5.4 %; Mean Corpuscular HGB Conc 33.8 g/dL (30-55); Mean Corpuscular Hemoglobin 28.7 pg (27-33); Mean Corpuscular Volume 84.9 fl (85-98); Mean Platelet Volume 9.5 fL (7.4-10.4); Monocytes # 0.9 10^3/uL (0.2-0.9); Monocytes % 5.5 %; Neutrophils # 13.95 10^3/uL (1.8-7.7); Neutrophils % 87.6 %; Nucleated Red Blood Cells % 0 %; Platelet Count 268 10^3/cmm (157-399); Red Blood Count 5.09 10^6/uL (3.85-5.65); Red Cell Distribution Width 12.9 % (12.1-15.1); White Blood Count 15.93 10^3/uL (3.29-11.43)
--- NOTE | 2024-05-08 15:37 | CTR_ITS ---
PROCEDURE INFORMATION: Exam: CT Abdomen And Pelvis With Contrast Exam date and time: 05/08/2024 4:57 PM Age: 38 years old Clinical indication: Vomiting; Abdominal pain; Additional info: Abdominal pain, nausea vomiting TECHNIQUE: Imaging protocol: Computed tomography of the abdomen and pelvis with contrast. Radiation optimization: All CT scans at this facility use at least one of these dose optimization techniques: automated exposure control; mA and/or kV adjustment per patient size (includes targeted exams where dose is matched to clinical indication); or iterative reconstruction. Contrast material: OMNI 350; Contrast volume: 100 ml; Contrast route: INTRAVENOUS (IV); COMPARISON: CT abdomen pelvis w con* [id number] 11/03/2023 11:07 AM RADIATION DOSE METRICS: Total DLP (mGy-cm): 1027.13 FINDINGS: Liver: Hepatic steatosis suspected. Gallbladder and biliary ducts: Normal. No calcified stones. No ductal dilation. Pancreas: Normal. No ductal dilation. Spleen: Spleen enlarged to nearly 14 cm. Adrenal glands: Normal. No mass. Kidneys and ureters: Right kidney 10.5 mm fat density lesion suggestive of a benign angiomyolipoma. Stomach and bowel: Prominent fluid in the stomach, small bowel and colon suggestive of a gastroenterocolitis. Appendix: No evidence of appendicitis. Intraperitoneal space: Unremarkable. No free air. No significant fluid collection. Vasculature: Unremarkable. No abdominal aortic aneurysm. Lymph nodes: Unremarkable. No enlarged lymph nodes. Urinary bladder: Unremarkable as visualized. Reproductive: Fluid in the uterine cavity likely related to menstrual status. Left ovary 22 mm cyst, likely follicular. Bones/joints: Unremarkable. No acute fracture. Soft tissues: Unremarkable. CT/CT abdomen pelvis w con* [id number] IMPRESSION: 1. Prominent fluid in the stomach, small bowel and colon suggestive of a gastroenterocolitis. 2. Hepatic steatosis suspected. 3. Spleen enlarged to nearly 14 cm. 4. Right kidney 10.5 mm fat density lesion suggestive of a benign angiomyolipoma. 5. Fluid in the uterine cavity likely related to menstrual status. 6. Left ovary 22 mm cyst, likely follicular.
[2024-05-08 15:41] LABS: Alanine Aminotransferase 11 U/L (0-33); Alkaline Phosphatase 91 U/L (35-105); Blood Urea Nitrogen 8 mg/dL (6-20); C Reactive Protein 10.2 mg/L (0.0-4.9); Calcium 8.7 mg/dL (8.5-10.5); Carbon Dioxide 21 mmol/L (22-29); Chloride 102 mmol/L (98-107); Creatinine Clr Calc Pharmacy 129.5017; Glomerular Filtration Rate 94.2 mL/min (90-130); Glucose 111 mg/dL (65-115); Lipase 26 U/L (13-60); Osmolality Calculated 285 mOsm/kg (285-295); Sodium 138 mmol/L (136-145); Total Bilirubin 0.4 mg/dL (0.15-1.2)
[2024-05-08 15:42] LABS: Aspartate Amino Transferase 14 U/L (0-32)
--- NOTE | 2024-05-08 15:51 | PC.NURSE ---
patient c/o freezing has been provided with 3 blankets from staff. Wants temp retaken as she felt alex did it incorrectly. recheck has been done /98.4.
[2024-05-08] MEDS: prochlorperazine 10 mg/2 mL Inj 5 MG IVP (15:56)
--- NOTE | 2024-05-08 15:56 | ED_ITS ---
HPI - Abdominal Pain 2 General: Chief Complaint: Abdominal Pain Stated Complaint: vomitting Time Seen by Provider: 05/08/24 15:11 History of Present Illness: Patient is a 38-year-old female that presents to the emergency department with complaints of umbilical abdominal pain, nausea vomiting. Onset of symptoms last night. Patient has trialed an antiemetic of some sort but does not recall the name. Patient unsure on fevers but has been chilling. Denies diarrhea or constipation Reports cough but no congestion. Medical history includes low back pain with radiculopathy and prior MRSA infection. Surgical history includes x 1 Only routine medicine is gabapentin Related Data Date of Last Menstrual Period: 04/23/24 Home Medications Medication Instructions Recorded Confirmed gabapentin 100 mg capsule 100 mg PO TID 03/25/24 03/25/24 Previous Rx's Medication Instructions Recorded ondansetron 4 mg disintegrating 4 mg PO Q8H PRN nausea and 05/08/24 tablet vomiting #30 tabs promethazine 12.5 mg rectal 12.5 mg MA TID nausea and vomiting 05/08/24 suppository #12 ea sulfamethoxazole 800 1 tab PO BID 5 days #10 tabs 05/08/24 mg-trimethoprim 160 mg tablet (Bactrim DS) Allergies Allergy/AdvReac Type Severity Reaction Status Date / Time Penicillins Allergy Unknown Verified 05/08/24 14:30 Review of Systems 2 General: Reports: 10 or more systems reviewed and unremarkable except in HPI and below PFSH ED 2 PFSH: Medical History Sciatica of right side MRSA (methicillin resistant Staphylococcus aureus) infection delivery delivered Obesity (BMI 30-39.9) Family History Father Hypertension Arthritis Mother No problems noted. Social History Smoking and tobacco/nicotine status: former use of tobacco/nicotine Quit status (tobacco/nicotine): not considering quitting Alcohol intake: former Substance/Drug Use: current Substance/Drug use frequency: few times a week Female Reproductive History: Date of last menstrual period: 04/23/24 Physical Exam 2 Const: COMMON NORMALS: no acute distress, patient oriented x3 and alert G ENERAL APPEARANCE: cooperative ORIENTATION/CONSCIOUSNESS: Yes awake, Yes oriented to person, Yes oriented to place and Yes oriented to time HENMT: COMMON NORMALS: normocephalic and atraumatic HEAD & SCALP: n ormocephalic and atraumatic FACE & SINUS: normal facial exam MOUTH: Normal oral and palatal mucosa present THROAT: posterior oropharynx normal Eye: COMMON NORMALS: Equal, round and reactive pupils present, EOMs intact bilaterally, conjunctivae normal and no scleral icterus GENERAL EYE: a ppearance normal, both eyes and all related structures ALIGNMENT: Yes alignment normal PERIORBITAL: periorbital findings normal CONJUNCTIVA: Yes conjunctivae normal PUPIL: Yes Equal, round and reactive pupils present Neck/C-Spine: COMMON NORMALS: full ROM GENERAL: Yes normal visual inspection Lymph: LYMPHATIC: no lymphadenopathy noted Chest: COMMONS NORMALS: normal inspection of the chest Breast/axilla inspection: Yes no chest deformity, asymmetry, normal contours, no nodules, masses, tenderness Resp: COMMON NORMALS: normal respiratory effort, No retractions, No use of accessory muscles and clear to auscultation bilaterally EFFORT & INSPECTION: Yes able to speak in complete sentences and Yes symmetric chest movement A USCULTATION: clear to auscultation bilaterally Cardio: COMMON NORMALS: regular rate, regular rhythm and Peripheral pulses 2+ throughout RATE: regular rate RHYTHM: regular rhythm PERIPHERAL PULSES: Peripheral pulses 2+ throughout GI: COMMON NORMALS: Normal to inspection, nondistended, normoactive bowel sounds present, Soft to palpation, non-tender and No hepatosplenomegaly present INSPECTION: Yes normal to inspection AUSCULTATION: Yes normoactive bowel sounds PALPATION: Yes Soft to palpation and Yes No hepatosplenomegaly present RECTAL EXAM: deferred Extremity: COMMON NORMALS: normal to inspection GENERAL: Yes normal exam except as noted Neuro: COMMON NORMALS: patient oriented x3 SENSORIUM/ORIENTATION: Yes alert, Yes oriented to person, Yes oriented to place and Yes oriented to time CRANIAL NERVES: Yes CN normal except as noted Psych: COMMON NORMALS: mental status grossly normal, Normal thought process present, cooperative, activity/motor behavior normal, denies homicidal ideation and denies suicidal ideation THOUGHT PROCESS: Normal thought process present Skin: COMMON NORMALS: no rashes or lesions noted, no wounds and turgor normal GENERAL SKIN EXAM: no rashes or lesions noted and turgor normal Course 2 Vital Signs: Vital signs: Vital Signs Temperature 98.5 F 05/08/24 19:27 Pulse Rate 103 H 05/08/24 20:00 Respiratory Rate 16 05/08/24 19:27 Blood Pressure 107/69 05/08/24 20:00 Pulse Oximetry 95 05/08/24 20:00 Oxygen Delivery Me thod Room Air 05/08/24 19:27 MDM - Abdominal Pain Medical Decision Making Differential diagnosis includes gastroenteritis, appendicitis, colitis, pancreatitis, pneumonia, COVID/influenza Patient underwent diagnostics that included a CBC, CMP, lipase, CRP. Patient had a leukocytosis of 16,000 but no anemias or thrombocytopenia. C-reactive protein is 10.2. Chemistry panel reveals no significant electrolyte abnormality, renal or liver dysfunction. Lipase within normal limits?26. Urinalysis and urine test ordered. Negative test Urinalysis reveals 21-50 white blood cells with leukoesterase and 4+ bacteria. Patient was started on Bactrim for urinary tract infection CT abdomen pelvis with contrast reveals: 1. Prominent fluid in the stomach, small bowel and colon suggestive of a gastroenterocolitis. 2. Hepatic steatosis suspected. 3. Spleen enlarged to nearly 14 cm. 4. Right kidney 10.5 mm fat density lesion suggestive of a benign angiomyolipoma. 5. Fluid in the uterine cavity likely related to menstrual status. 6. Left ovary 22 mm cyst, likely follicular. Patient did not tolerate her oral challenge. She began vomiting again. Reglan was given and an IV bolus was ordered. Patient nausea has resolved. Her heart rate is 105. Blood pressures were documented originally in the 90s but once we got an appropriate size blood pressure cuff and replaced it, her blood pressures were in the 117 120 range Patient is anxious to discharge home. She understands that if she does not improve in the next 24 hours she probably needs to be reevaluated. There is no evidence of pyelonephritis but warned her to watch her symptoms closely. Patient is agreeable Lab Data 05/08/24 15:14 05/08/24 15:14 Labs/Radiology: Radiology Impressions Abdomen/Pelvis CT 05/08/24 15:37 IMPRESSION: 1. Prominent fluid in the stomach, small bowel and colon suggestive of a gastroenterocolitis. 2. Hepatic steatosis suspected. 3. Spleen enlarged to nearly 14 cm. 4. Right kidney 10.5 mm fat density lesion suggestive of a benign angiomyolipoma. 5. Fluid in the uterine cavity likely related to menstrual status. 6. Left ovary 22 mm cyst, likely follicular. Laboratory Results WBC 15.93 10^3/uL (3.29-11.43) H 05/08/24 15:14 RBC 5.09 10^6/uL (3.85-5.65) 05/08/24 15:14 Hgb 14.60 g/dL (11.27-16.99) 05/08/24 15:14 Hct 43.2 % (36-47) 05/08/24 15:14 MCV 84.9 fl (85-98) L 05/08/24 15:14 MCH 28.7 pg (27-33) 05/08/24 15:14 MCHC 33.8 g/dL (30-55) 05/08/24 15:14 RDW 12.9 % (12.1-15.1) 05/08/24 15:14 Plt Count 268 10^3/cmm (157-399) 05/08/24 15:14 MPV 9.5 fL (7.4-10.4) 05/08/24 15:14 Neut % (Auto) 87.6 % 05/08/24 15:14 Lymph % (Auto) 5.4 % 05/08/24 15:14 [place] % (Auto) 5.5 % 05/08/24 15:14 Eos % (Auto) 0.8 % 05/08/24 15:14 Baso % (Auto) 0.3 % 05/08/24 15:14 Neut # (Auto) 13.95 10^3/uL (1.8-7.7) H 05/08/24 15:14 Lymph # (Auto) 0.9 10^3/uL (0.8-4.8) 05/08/24 15:14 [place] # (Auto) 0.9 10^3/uL (0.2-0.9) 05/08/24 15:14 Eos # (Auto) 0.1 10^3/uL (0.0-0.8) 05/08/24 15:14 Baso # (Auto) 0.1 10^3/uL (0.0-0.1) 05/08/24 15:14 Nucleated RBC % (auto) 0 % 05/08/24 15:14 Nucleated RBCs # 0.0 /100WBC 05/08/24 15:14 Sodium 138 mmol/L (136-145) 05/08/24 15:14 Potassium 4.0 mmol/L (3.5-5.1) 05/08/24 15:14 Chloride 102 mmol/L (98-107) 05/08/24 15:14 Carbon Dioxide 21 mmol/L (22-29) L 05/08/24 15:14 Anion Gap 19.0 (5-19) 05/08/24 15:14 BUN 8 mg/dL (6-20) 05/08/24 15:14 Creatinine 0.7 mg/dL (0.5-0.9) 05/08/24 15:14 GFR Calculation 94.2 mL/min (90-130) 05/08/24 15:14 Glucose 111 mg/dL (65-115) 05/08/24 15:14 Calculated Osmolality 285 mOsm/kg (285-295) 05/08/24 15:14 Calcium 8.7 mg/dL (8.5-10.5) 05/08/24 15:14 Total Bilirubin 0.4 mg/dL (0.15-1.2) 05/08/24 15:14 AST 14 U/L (0-32) 05/08/24 15:14 ALT 11 U/L (0-33) 05/08/24 15:14 Alkaline Phosphatase 91 U/L (35-105) 05/08/24 15:14 C-Reactive Protein 10.2 mg/L (0.0-4.9) H 05/08/24 15:14 Total Protein 7.0 g/dL (6.6-8.7) 05/08/24 15:14 Albumin 4.0 g/dL (3.5-5.2) 05/08/24 15:14 Globulin 3.0 g/dL (1.3-4.6) 05/08/24 15:14 Lipase 26 U/L (13-60) 05/08/24 15:14 HCG, Qual Negative (Negative) 05/08/24 16:26 Urine Color Yellow (Yellow) 05/08/24 16:26 Urine Appearance Turbid (CLEAR) A 05/08/24 16:26 Urine pH 5.0 (5-7) 05/08/24 16:26 Ur Specific [place] 1.025 (1.005-1.030) 05/08/24 16:26 Urine Protein 1+ (Negative) A 05/08/24 16:26 Urine Glucose (UA) Negative (Normal) 05/08/24 16:26 Urine Ketones Trace (Negative) 05/08/24 16:26 Urine Blood Negative (Negative) 05/08/24 16:26 Urine Nitrate Negative (Negative) 05/08/24 16:26 Urine Bilirubin Negative (Negative) 05/08/24 16:26 Urine Urobilinogen 1.0 mg/dL (Negative) 05/08/24 16:26 Ur Leukocyte Esterase Trace (Negative) A 05/08/24 16:26 Urine RBC 21-50 /hpf (0-2) H 05/08/24 16:26 Urine WBC 21-50 /hpf (0-5) H 05/08/24 16:26 Ur Squamous Epith Cells 51-100 /hpf (0-5) 05/08/24 16:26 Amorphous Sediment Not Reportable 05/08/24 16:26 Urine Bacteria 4+ /hpf (NONE) H 05/08/24 16:26 Hyaline Casts 12.81 /lpf 05/08/24 16:26 Coronavirus (PCR) Negative (Negative) 05/08/24 15:23 Influenza A (PCR) Negative (Negative) 05/08/24 15:23 Influenza Type B (PCR) Negative (Negative) 05/08/24 15:23 RSV (PCR) Negative (Negative) 05/08/24 15:23 All radiology interpretation(s) finalized by discharge Discharge Plan Discharge Patient Disposition: Home Clinical Impression: Urinary tract infection Condition: Stable Prescriptions: New sulfamethoxazole-trimethoprim [Bactrim DS] 800-160 mg tablet 1 tab PO BID 5 Days Qty: 10 0RF ondansetron 4 mg tablet,disintegrating 4 mg PO Q8H PRN (Reason: nausea and vomiting) Qty: 30 0RF promethazine 12.5 mg suppository 12.5 mg MA TID Qty: 12 0RF Rx Instructions: This is a rescue medication. If you are not tolerating the Zofran then you may use it. No Action gabapentin 100 mg capsule 100 mg PO TID Discharge Orders: Discharge ED (Routine); Ordered 05/08/24 Ordered By: Aidan Martinez Referrals: Evita Dietz, [Primary Care Provider] - Discharge Diet: Advance as tolerated Discharge Activity: Resume usual activity Patient Instructions: Opioid Safety, Pain Management, Urinary Tract Infection - Women Activity Restrictions/Additional Instructions: Please monitor your symptoms closely. If you are not better in the next 24 to 48 hours you need to be reevaluated. Sending you home with Zofran. This is an oral dissolving tablet that you can take every 8 hours as needed for nausea and vomiting. You will have Phenergan suppositories available should you vomit after taking Zofran. We are also sending you home with Bactrim for the urinary tract infection.. Please take as prescribed Coding Level of Care Code ED Direct Customer Service Representative for Gini Oreilly
[2024-05-08] MEDS: morphine 4 mg/mL SDV 1 mL IVP (16:00)
[2024-05-08 16:10] LABS: Covid PCR NEGATIVE (Negative); Influenza A NEGATIVE (Negative); Influenza B NEGATIVE (Negative); Respiratory Syncytial Virus Ce NEGATIVE (Negative)
[2024-05-08 16:34] LABS: Bilirubin Urine Negative (Negative); Blood Urine Negative (Negative); Glucose Urine UA Negative (Normal); Ketones Urine Trace (Negative); Leukocyte Esterase Urine Trace (Negative); Nitrate Urine Negative (Negative); Protein Urine 1+ (Negative); Specific Gravity, Urine 1.025 (1.005-1.030); Urine Appearance Turbid (CLEAR); Urine Color Yellow (Yellow)
[2024-05-08 16:35] LABS: HCG Qualitative Urine. Negative (Negative)
[2024-05-08 16:39] LABS: Add Urine Microscopic? YES; Bacteria Urine 4+ /hpf; Hyaline Casts Urine 12.81 /lpf; RBC Urine 21-50 /hpf (0-2); Squamous Epithelial Cell Urine 51-100 /hpf (0-5); WBC Urine 21-50 /hpf (0-5)
[2024-05-08 16:47] LABS: UA Slide Review UA Slide Review Perf
[2024-05-08 16:49] LABS: Add Urine Culture? Yes
[2024-05-08] MEDS: iohexol 350 mg/mL 500 mL Btl (per mL) IV (17:00)
[2024-05-08] MEDS: sulfamethoxazole-trimeth DS 160-800 mg Tablet 1 TAB PO (17:22)
[2024-05-08] MEDS: sodium chloride 0.9% 1,000 ML 999 ML IV (18:27)
[2024-05-08] MEDS: metoclopramide 5 mg/mL SDV 2 mL 10 MG IVP (18:29)
== END 2024-05-08 20:03 | disposition home or self-care (01) ==
PROVIDERS: Emergency Provider Nurse Practitioner; PCP Family Medicine
DX: N39.0 Urinary tract infection, site not specified (principal)
CPT/HCPCS: 74177; 80053; 81001; 81025; 83690; 85025; 86140; 87086; 87637; 96374; 96375; 99285; J0780; J2270; J2405; J2765; J7030

== ENCOUNTER → 2024-07-21 11:29 | Outpatient (BNVA) | payer SELFPAY | PROVIDERS: PCP Family Medicine; Visit Provider Registered Nurse Neonatal Intensive Care | DX: R11.2 Nausea with vomiting, unspecified (principal) | CPT/HCPCS: 87400 ==

== ENCOUNTER → 2024-08-29 13:56 | Outpatient (BNVA) | payer SELFPAY | PROVIDERS: PCP Family Medicine; Visit Provider Registered Nurse Neonatal Intensive Care | DX: J02.9 Acute pharyngitis, unspecified (principal) | CPT/HCPCS: 87071; 87880 ==

== ENCOUNTER → 2025-02-01 09:24 | Outpatient (BNVA) | payer BC, MEDICAID, SELFPAY | PROVIDERS: PCP Family Medicine; Visit Provider Student in an Organized Health Care Education/Training Program | DX: G56.03 Carpal tunnel syndrome, bilateral upper limbs (principal) | CPT/HCPCS: 73110 ==